=== PATIENT | male | born 1965 | race Caucasian/White ===

== ENCOUNTER 2021-07-22 11:28 | Day surgery (SDC) | payer OTHER, SELFPAY ==
[2021-07-17 08:57] VITALS: BMI 28.7
--- NOTE | 2021-07-18 14:29 | HO.ANESPROP2 ---
Documented by User: Denisha Cameron NP 07/18/21 14:29 HPI - Anesthesia Eval Consult details Narrative: 56yo M for Colonoscopy [facility] Past Medical History Medical History (Updated 07/17/21 @ 08:57 by Lizzette Sprague RN) Asthma GERD (gastroesophageal reflux disease) Seasonal allergies Surgical History Surgical History (Updated 07/17/21 @ 08:57 by Lizzette Sprague, RN) History of back surgery History of esophagogastroduodenoscopy (EGD) Hx of colonoscopy Hx of knee surgery Social History Social History (Updated 07/17/21 @ 08:58 by Lizzette Sprague, AGUSTÍN) Patient Tobacco Use Status: Current everyday Tobacco user Tobacco use type: Cigarette Cigarettes Per Day: 10 Use of substances other than those prescribed or required for medical reasons: No Advance Directives: No Advance Directives Information Provided: Yes Recently lost weight without trying: No Meds Allergies Allergy/AdvReac Type Severity Reaction Status Date / Time ibuprofen Allergy Unknown Verified 07/17/21 08:54 Home Medications Medication Instructions Recorded Confirmed Last Taken Type Flovent Diskus 07/17/21 Unknown History Probiotic 07/17/21 Unknown History Vitamin D3 07/17/21 Unknown History fluticasone propionate 07/17/21 Unknown History omeprazole 20 mg capsule,delayed 20 mg PO DAILY 07/17/21 07/17/21 Unknown History release propranolol 10 mg tablet 10 mg PO BID 07/17/21 07/17/21 Unknown History Exam Exam Date and Time: July 18, 2021 1429 Height,Weight and Vital Signs: Height 5 ft 10.5 in Weight 92.079 kg Assessment and Plan Assessment Anesthesia Assessment: Chart Reviewed Documented by User: Adam Spivey MD 07/22/21 13:48 [facility] Past Medical History Medical History (Updated 07/17/21 @ 08:57 by Lizzette Sprague RN) Asthma GERD (gastroesophageal reflux disease) Seasonal allergies Family History Family history of problems with anesthesia: No Surgical History Surgical History (Updated 07/17/21 @ 08:57 by Lizzette Sprague RN) History of back surgery History of esophagogastroduodenoscopy (EGD) Hx of colonoscopy Hx of knee surgery History of Problems with Anesthesia: No Social History Social History (Updated 07/17/21 @ 08:58 by Lizzette Sprague RN) Patient Tobacco Use Status: Current everyday Tobacco user Tobacco use type: Cigarette Cigarettes Per Day: 10 Use of substances other than those prescribed or required for medical reasons: No Advance Directives: No Advance Directives Information Provided: Yes Recently lost weight without trying: No Meds Allergies Allergy/AdvReac Type Severity Reaction Status Date / Time ibuprofen Allergy Unknown Verified 07/17/21 08:54 Home Medications Medication Instructions Recorded Confirmed Last Taken Type Flovent Diskus 07/17/21 Unknown History Probiotic 07/17/21 Unknown History Vitamin D3 07/17/21 Unknown History fluticasone propionate 07/17/21 Unknown History omeprazole 20 mg capsule,delayed 20 mg PO DAILY 07/17/21 07/17/21 Unknown History release propranolol 10 mg tablet 10 mg PO BID 07/17/21 07/17/21 Unknown History Exam Airway Mallampati Class: II TM Dist: >3cm Neck ROM: Full Loose/Missing/Broken Teeth: No Heart: [id number] Lungs: cta b/l Assessment and Plan Assessment Anesthesia Assessment: Anesthesia Plan Discussed Final Anesthetic Review Family History of Problems with Anesthesia: No History of Problems with Anesthesia: No NPO: Yes ASA Class: II Final Preanesthetic Review: No Changes in Pt Med Stat, Meds/Allgs Chart Reviewed, Consent Obtained/Reviewed and Anes Risks/Benef Reviewed Patient Risk: Intermediate Procedure Risk: Low Assessment/Block/Sedation in SS: Assess/Block/Sedation-SS Anesthetic Plan Anesthetic Plan: MAC: and Agree w/ Assess. and Plan Disposition: Standard PACU
[2021-07-22 12:32] VITALS: BP 110/63; PULSE 54; RESP 15; TEMP 36.1; O2SAT 96; BMI 27.8
[2021-07-22] MEDS: Lactated Ringers 1,000 ML 100 ML IVCONT (12:47)
[2021-07-22 15:05] VITALS: BP 105/50; PULSE 62; RESP 18; TEMP 36.6; O2SAT 97
--- NOTE | 2021-07-22 15:10 | P.BOP_ITS ---
Brief Operative Note Date of Service: 07/22/21 Pre-op diagnosis: Screening Post-op diagnosis: other (Colon polyps) Procedure: Colonoscopy to the cecum with cold snare polypectomy at 30cm and hot snare polypectomy in cecum Surgeon: Garrison Banerjee Anesthesia: MAC Was an Study Abroad Advisor used for this Procedure?: No Estimated blood loss (mL): 2.0 Pathology: other (A. Polyp at 30cm B. Cecal polyp) Condition: stable Disposition: PACU
[2021-07-22 15:20] VITALS: BP 122/58; PULSE 69; RESP 18; TEMP 36.2; O2SAT 98
--- NOTE | 2021-07-22 16:31 | OP_ITS ---
SURGEON: Garrison Banerjee MD INDICATIONS: The patient presents for evaluation of colorectal cancer screening and personal history of a tubular adenoma of the colon. Full consent was obtained from him for this, including risks of bleeding and perforation. PREOPERATIVE DIAGNOSIS: POSTOPERATIVE DIAGNOSIS: PROCEDURE PERFORMED: Colonoscopy to the cecum with cold snare polypectomy at 30 cm and hot snare polypectomy of cecal polyp. ESTIMATED BLOOD LOSS: COMPLICATIONS: ANESTHESIA: Monitored anesthesia care. ASSISTANTS: SPECIMENS: PREOPERATIVE DIAGNOSES: Colorectal cancer screening and personal history of tubular adenoma of the colon. POSTOPERATIVE DIAGNOSES: Colorectal cancer screening and personal history of tubular adenoma of the colon, colon polyps, diverticulosis, and internal hemorrhoids. DESCRIPTION OF PROCEDURE: The patient was placed in the left lateral decubitus position. The digital rectal exam revealed no abnormalities. The Olympus video pediatric colonoscope was entered into the rectum and advanced easily to the cecum. Once in the cecum I did identify the cecal pouch with appendiceal orifice and a normal-appearing ileocecal valve. There was transillumination of light deep in the right lower quadrant. The great majority of the cecum appeared normal. However, just on the inner edge of the cecum along the fold beneath the ileocecal valve was a flat but raised approximately 12 mm grossly adenomatous polyp. This was removed in piecemeal fashion with a hot snare polypectomy. Post polypectomy, there did not appear to be any residual polyp nor bleeding. There was initially some oozing, but this did stop spontaneously. I was going to place a clip on the site, but it was at a very difficult location and I could not get a good angle in which to place the clip. However there was no bleeding, even after irrigation and greater than 10 minutes of observation. The scope was then slowly withdrawn assessing all mucosal surfaces carefully. Preparation was excellent. At 30 cm was an approximately 5 mm polyp, which was removed by cold snare polypectomy and recovered by suction. The polypectomy site appeared clean, without any sign of residual polyp nor any significant bleeding. I did not visualize any other polyps, colitis, nor angiodysplasia. There was a mild amount of sigmoid diverticulosis. In the rectum, the scope was retroflexed visualizing some internal hemorrhoids, but no other pathology. The rectal mucosa appeared normal. The scope was straightened and withdrawn from the patient. He tolerated the procedure well and was returned to the recovery area in stable condition. IMPRESSION: 1. Colon polyps, status post cold snare polypectomy at 30 cm and hot snare polypectomy in the cecum. 2. Diverticulosis. 3. Internal hemorrhoids. PLAN: The results of the pathology will be checked. Given the flat polyp in the area of the cecum, I would recommend a repeat colonoscopy in 1-2 years. He was advised not to use any aspirin and NSAIDs for least 1 week. MD HOLLAND Alonso/JASE / [id number] MTDD
== END 2021-07-22 15:51 | disposition home or self-care (01) ==
PROVIDERS: PCP Internal Medicine; Visit Provider Internal Medicine
PROC: 0DJD8ZZ Inspection of Lower Intestinal Tract, Via Natural or Artificial Opening Endoscopic (ICD-10-PCS; CPT 45378; principal; 2021-07-22 12:40)
DX: Z12.11 Encounter for screening for malignant neoplasm of colon (principal); D12.0 Benign neoplasm of cecum; D12.6 Benign neoplasm of colon, unspecified; K57.30 Diverticulosis of large intestine without perforation or abscess without bleeding; K64.8 Other hemorrhoids; J45.909 Unspecified asthma, uncomplicated; F17.210 Nicotine dependence, cigarettes, uncomplicated; Z86.010 Personal history of colon polyps
CPT/HCPCS: 45385; 88305

== ENCOUNTER 2023-10-05 07:57 | Outpatient (REF) | payer OTHER, SELFPAY ==
[2023-10-05 12:05] LABS: MANUAL DIFF FLAG NO
[2023-10-05 12:06] LABS: Basophils Percent Auto 0.6 % (0-2); Eosinophils Absolute Auto 0.2 X10*3/uL (0.0-0.4); Eosinophils Percent Auto 3.3 % (0-4); Hematocrit 47.9 % (42.0-52.0); Imm Gran Abs Auto 0.03 X10*3/uL (0.00-0.03); Imm Gran Pct Auto 0.5 % (0.0-0.4); Lymphocytes Absolute Auto 2.3 X10*3/uL (1.2-4.9); Lymphocytes Percent Auto 35.5 % (20-40); Mean Corpuscular HGB Conc 33.4 g/dl (31.0-36.0); Mean Corpuscular Hemoglobin 32.1 pg (27.0-33.0); Mean Corpuscular Volume 96.2 fL (80.0-98.0); Mean Platelet Volume 9.6 fL (9.4-12.4); Monocytes Absolute Auto 0.5 X10*3/uL (0.1-1.2); Neutrophils Absolute Auto 3.5 x10*3/uL (2.0-8.3); Neutrophils Percent Auto 53.1 % (45-73); Platelet Count 276 X10*3/uL (160-400); Red Blood Count 4.98 X10*6/uL (4.60-5.80); Red Cell Distribution Width 13.9 % (11.0-16.0); White Blood Count 6.6 X10*3/uL (4.8-10.8)
[2023-10-05 12:22] LABS: Appearance Urine Clear; Color Urine Yellow; Glucose Urine UA Negative (Negative); Leukocyte Esterase Urine Negative (Negative); Nitrite Urine Negative (Negative); Specific Gravity - Urine 1.015 (1.005-1.025); Urine Blood Negative (Negative); Urine Ketones Negative (Negative); Urine Protein Negative (Neg-Trace)
[2023-10-05 12:27] LABS: Bacteria Urine None Seen (None Seen); Hyaline Casts Urine 0-2 /LPF (0-2); RBC Urine 0-2 /HPF (0-2); Squamous Epithelial Cell Urine 0-2 /HPF (0-2); WBC Urine 0-5 /HPF (0-5)
[2023-10-05 13:12] LABS: Alanine Aminotransferase 15 U/L (0-40); Albumin Level 4.1 g/dL (3.5-5.0); Alkaline Phosphatase 45 U/L (39-117); Anion Gap 11 (12-20); Aspartate Amino Transferase 15 U/L (5-37); Bilirubin Total 0.5 mg/dL (0.0-1.0); Blood Urea Nitrogen 11 mg/dL (9-16); Calcium 9.1 mg/dL (8.4-10.2); Carbon Dioxide 24 mmol/L (22-29); Chloride 109 mmol/L (96-108); Cholesterol 162 mg/dL (<200); Estimated Glomerular Filt Rate > 60; Glucose Fasting 93 mg/dL (60-99); HDL Cholesterol 52 mg/dL (>40); LDL Cholesterol Calculated 95 mg/dL (<100); Potassium 4.1 mmol/L (3.3-5.1); Sodium 140 mmol/L (135-145); Total Protein 6.6 g/dL (6.5-8.0); Triglycerides 77 mg/dL (<150)
[2023-10-05 13:14] LABS: PSA,Total (Free>4and<10) 0.84 ng/mL (0.00-4.00)
[2023-10-05 13:35] LABS: Thyroid Stimulating Hormone 0.97 uIU/mL (0.32-4.0); Vitamin D 25-OH Total 25.4 ng/mL (>30)
== END 2023-10-05 07:58 | disposition home or self-care (01) ==
LOC: HO.HMGCLDS 07:57
PROVIDERS: PCP Internal Medicine; Visit Provider Internal Medicine
DX: J45.30 Mild persistent asthma, uncomplicated (principal); R25.1 Tremor, unspecified; Z12.5 Encounter for screening for malignant neoplasm of prostate
CPT/HCPCS: 36415; 80053; 80061; 81001; 82306; 84153; 84443; 85025

== ENCOUNTER 2023-10-16 08:50 | Outpatient (REF) | payer BC, SELFPAY ==
--- NOTE | ~2023-10-16 | XR_ITS ---
EXAMINATION: XR CHEST CLINICAL INFORMATION: Asthma COMPARISON: None available. TECHNIQUE: 2 views of the chest were obtained. FINDINGS: No significant abnormality is noted involving the heart, lungs, mediastinum, bony thorax or soft tissues. XR/XR chest 2V IMPRESSION: Unremarkable examination.
== END 2023-10-16 08:51 | disposition home or self-care (01) ==
LOC: HO.HMGCX 08:50
PROVIDERS: PCP Internal Medicine; Visit Provider Internal Medicine
DX: J45.30 Mild persistent asthma, uncomplicated (principal)
CPT/HCPCS: 71046

== ENCOUNTER 2023-10-21 08:48 | Outpatient (AMB) | payer BC, SELFPAY ==
[2023-10-21 08:58] VITALS: BP 106/72; PULSE 54; O2SAT 96; BMI 28.7
--- NOTE | 2023-10-21 08:58 | A.OFFVIS_ITS ---
Vital Signs 10/21/23 08:58 Height 5 ft 10.5 in Weight 203 lb 2 oz BMI 28.7 BP 106/72 Blood Pressure Location Lt brachial Position Sitting Pulse 54 Pulse Source Pulse Oximeter Pulse Oximetry (%) 96 Oxygen Delivery Method Room Air Intake Visit Reasons: Asthma Allergies ibuprofen Allergy (Verified 10/21/23 09:02) Unknown HPI HPI Asthma: Details: Grant is a pleasant 58 year old, recently quit smoking with 20 pack year history, with underlying asthma, environmental allergies, VIKKI and GERD. He was referred by PCP for pulmonary evaluation for worsening asthma control. He has been using an ICS inhaler with moderate effect, recently switched to QVAR from Flovent. Patient reports since having COVID in May 2019 he has had increased labored breathing with activity, productive cough with white sputum and intermittent wheezing. Denies chest tightness. He was diagnosed with asthma as an adult, never requiring intubation. He reports multiple seasonal allergies, symptoms controlled with flonase and claritin. He denies any pets at home. He denies any occupational exposures. He denies any pertinent family history. [facility] Medical History (Updated 10/21/23 @ 10:01 by Cierra Servin NP) Seasonal allergies GERD (gastroesophageal reflux disease) Asthma Surgical History (Updated 07/17/21 @ 08:57 by Lizzette Sprague RN) Hx of knee surgery History of back surgery Hx of colonoscopy History of esophagogastroduodenoscopy (EGD) Social History (Updated 10/21/23 @ 09:59 by Cierra Servin NP) Patient Tobacco Use Status: Former Tobacco user Tobacco use type: Cigarette Cigarettes Per Day: 10 Years Smoked: started approx 15 yrs old, 1/2 ppd, quit this past thursday Review of Systems Const Denies chills, Denies excessive sweating, Denies fever(s), Denies headache(s) and Denies night sweats Eyes Denies dry eyes, Denies irritation and Denies itchy eyes ENT Reports Normal hearing present, Denies headache(s), Denies nasal congestion, Denies nasal discharge, Denies post nasal drip and Denies sore throat Card Denies chest pain, Denies chest pain at rest, Denies chest pain with activity, Denies claudication, Denies leg edema, Denies dyspnea, Denies orthopnea and Denies paroxysmal nocturnal dyspnea Resp Denies chest congestion, Denies excessive phlegm production, Denies pain on inspiration, Denies pain with cough, Denies dyspnea and Denies stridor Musc Denies myalgias Neuro Reports Normal hearing present and Denies headache(s) Endo Denies excessive sweating Bernardo/Lymph Denies lymphadenopathy Aller/Immun Denies itchy eyes and Denies seasonal rhinorrhea Physical Exam Vital Signs: Last Vital Signs Pulse 54 10/21/23 08:58 BP 106/72 10/21/23 08:58 Pulse Ox 96 10/21/23 08:58 Oxygen Delivery Method Room Air 10/21/23 08:58 BMI result Body Mass Index 28.7 Const General: cooperative, healthy appearing, comfortable, no acute distress, well developed and alert Orientation/consciousness: patient oriented x3 Limitations: no limitations HEENT Head: Yes normal to inspection, Yes normocephalic and Yes atraumatic Ears: hearing grossly normal bilaterally and external ears normal Eyes General: appearance normal, both eyes and all related structures Eyelids: Yes eyelids normal Sclerae: sclerae normal EOM: EOMs intact bilaterally Neck Neck: Yes normal visual inspection and Yes no lymphadenopathy Lymphatic: no lymphadenopathy noted Chest Chest palpation & inspection: normal inspection of the chest Resp Effort & Inspection: normal respiratory effort, able to speak in complete sentences, no audible wheezes, no cough, no stridor, not tachypneic, no tripod positioning and no use of accessory muscles Auscultation: clear to auscultation bilaterally Cardio Jugular venous distension: no JVD Rate: regular rate Rhythm: regular rhythm Skin Other: warm, dry General skin exam: no rashes or lesions noted Neuro General: patient oriented x3 Cranial nerves: Yes Normal hearing present Cognition (Neuro): normal cognition Gait exam (Neuro): Normal gait present Extrem General: Yes normal to inspection, Yes capillary refill normal, Yes no clubbing, cyanosis or edema and Yes no pedal edema Psych Appearance: grossly normal and well kempt Speech and movement: Normal speech and movement present and Clear speech present Affect: normal affect Attitude: cooperative Thought process: Normal thought process present Thought content: Normal thought content present Insight: Good insight present (Psych) Judgement: Good judgement present (Psych) Assessment & Plan Assessment & Plan (1) Asthma: Code(s): J45.909 - Unspecified asthma, uncomplicated Category: Medical (2) Nicotine dependence, cigarettes, uncomplicated: Code(s): F17.210 - Nicotine dependence, cigarettes, uncomplicated Category: Medical (3) Environmental allergies: Code(s): Z91.09 - Other allergy status, other than to drugs and biological substances Category: Medical Plan Grant presents for pulmonary evaluation for worsening asthma control. He was previously using Flovent with good effect and switched to Qvar. He continues to report labored breathing and intermittent productive cough with white sputum as well as wheezing. Discussed switching to an ICS/LABA however patient deferred at this time. Advised to use albuterol PRN and if consistently uses with good effect then will reconsider switching. Patient recently quit smoking this past week and motivated to continue this. Discussed LDCT with 20+ smoking history, however he declined. Will send for PFT to assess severity of asthma and possible COPD. All questions were answered and patient is in agreement of plan. Will follow up in 6-8 weeks or sooner if needed. Orders: Orders PFT pulmonary function test Today J45.909 - Unspecified asthma, uncomplicated Coding Level of Care Code New Pt Level 4 (49602) Diagnoses Asthma J45.909 Nicotine dependence, cigarettes, uncomplicated F17.210 Environmental allergies Z91.09
== END 2023-10-21 09:28 | disposition home or self-care (01) ==
PROVIDERS: PCP Internal Medicine; Referring Provider Internal Medicine; Visit Provider Nurse Practitioner Family
DX: J45.909 Unspecified asthma, uncomplicated (principal); F17.210 Nicotine dependence, cigarettes, uncomplicated; Z91.09 Other allergy status, other than to drugs and biological substances
CPT/HCPCS: 99204

== ENCOUNTER → 2023-10-21 08:48 | Outpatient (BNVA) | payer OTHER, SELFPAY | PROVIDERS: PCP Internal Medicine; Referring Provider Internal Medicine; Visit Provider Nurse Practitioner Family ==

== ENCOUNTER 2023-12-01 08:43 | Outpatient (AMB) | payer BC, SELFPAY ==
--- NOTE | 2023-12-01 08:45 | A.OFFVIS_ITS ---
Vital Signs 12/01/23 08:50 Height 5 ft 10.5 in Weight 207 lb 6 oz BMI 29.3 BP 120/76 Blood Pressure Location Rt brachial Position Sitting Pulse 52 Pulse Source Pulse Oximeter Pulse Oximetry (%) 97 Oxygen Delivery Method Room Air Intake Visit Reasons: Asthma Allergies ibuprofen Allergy (Verified 12/01/23 08:54) Unknown HPI HPI Asthma: Details: Grant is a pleasant 58 year old, recently quit smoking with 20 pack year history, with underlying asthma, environmental allergies, VIKKI and GERD. He was initially referred by PCP for pulmonary evaluation for worsening asthma control since having COVID in May 2019. Since the last visit, he has quit smoking x 1 month and reports respiratory symptoms are well controlled on QVAR. He denies any respiratory symptoms at this time. We also discussed LDCT at the last visit and today however patient would like to defer at this time. An order for PFT was entered but this has yet to be scheduled. He denies any visits to urgent care or hospitalizations since the last visit. [facility] Medical History (Updated 10/21/23 @ 10:01 by Cierra Servin NP) Seasonal allergies GERD (gastroesophageal reflux disease) Asthma Surgical History (Updated 07/17/21 @ 08:57 by Lizzette Sprague RN) Hx of knee surgery History of back surgery Hx of colonoscopy History of esophagogastroduodenoscopy (EGD) Social History Patient Tobacco Use Status: Former Tobacco user Tobacco use type: Cigarette Cigarettes Per Day: 10 Years Smoked: started approx 15 yrs old, 1/2 ppd, quit this past thursday Review of Systems Const Denies chills, Denies excessive sweating, Denies fever(s), Denies headache(s) and Denies night sweats Eyes Denies dry eyes, Denies irritation and Denies itchy eyes ENT Reports Normal hearing present and Denies headache(s) Card Denies chest pain, Denies chest pain at rest, Denies chest pain with activity, Denies claudication, Denies leg edema, Denies dyspnea, Denies dyspnea on exertion, Denies orthopnea and Denies paroxysmal nocturnal dyspnea Resp Denies chest congestion, Denies cough, Denies excessive phlegm production, Denies pain on inspiration, Denies pain with cough, Denies dyspnea, Denies dyspnea on exertion, Denies stridor and Denies wheezing Musc Denies myalgias Neuro Reports Normal hearing present and Denies headache(s) Endo Denies excessive sweating Bernardo/Lymph Denies lymphadenopathy Aller/Immun Denies itchy eyes, Denies seasonal rhinorrhea and Denies wheezing Physical Exam Vital Signs: Last Vital Signs Pulse 52 12/01/23 08:50 BP 120/76 12/01/23 08:50 Pulse Ox 97 12/01/23 08:50 Oxygen Delivery Method Room Air 12/01/23 08:50 BMI result Body Mass Index 29.3 Const General: cooperative, healthy appearing, comfortable, no acute distress, well developed and alert Nutritional Appearance: average body habitus Orientation/consciousness: patient oriented x3 Limitations: no limitations HEENT Head: Yes normal to inspection, Yes normocephalic and Yes atraumatic Ears: hearing grossly normal bilaterally and external ears normal Eyes General: appearance normal, both eyes and all related structures Eyelids: Yes eyelids normal Sclerae: sclerae normal EOM: EOMs intact bilaterally Neck Neck: Yes normal visual inspection and Yes no lymphadenopathy Lymphatic: no lymphadenopathy noted Chest Chest palpation & inspection: normal inspection of the chest Resp Effort & Inspection: normal respiratory effort, able to speak in complete sentences, no audible wheezes, no cough, no stridor, not tachypneic, no tripod positioning and no use of accessory muscles Auscultation: clear to auscultation bilaterally Cardio Jugular venous distension: no JVD Rate: regular rate Rhythm: regular rhythm Skin Other: warm, dry General skin exam: no rashes or lesions noted Neuro General: patient oriented x3 Cranial nerves: Yes Normal hearing present Cognition (Neuro): normal cognition Gait exam (Neuro): Normal gait present Extrem General: Yes normal to inspection, Yes capillary refill normal, Yes no clubbing, cyanosis or edema and Yes no pedal edema Psych Appearance: grossly normal and well kempt Speech and movement: Normal speech and movement present and Clear speech present Affect: normal affect Attitude: cooperative Thought process: Normal thought process present Thought content: Normal thought content present Insight: Good insight present (Psych) Judgement: Good judgement present (Psych) Assessment & Plan Assessment & Plan (1) Asthma: Code(s): J45.909 - Unspecified asthma, uncomplicated Category: Medical (2) Personal history of tobacco use: Code(s): Z87.891 - Personal history of nicotine dependence Category: Social Hx Plan At this time Grant denies and respiratory symptoms and has been well controlled on Qvar, advised to continue. Commended patient on continuing to be smoke free and he is motivated to maintain this. Discussed LDCT with 20+ smoking history, however he declined. Awaiting PFT to be scheduled [place] [facility], he is aware this may be scheduled in 2 + months. If he requests this to be performed sooner will send out. All questions were answered and patient is in agreement of plan. Will follow up to review results or sooner if needed. Coding Level of Care Code Est Pt Level 3 (04700) Diagnoses Asthma J45.909 Personal history of tobacco use Z87.891
[2023-12-01 08:50] VITALS: BP 120/76; PULSE 52; O2SAT 97; BMI 29.3
== END 2023-12-01 10:55 | disposition home or self-care (01) ==
PROVIDERS: PCP Internal Medicine; Visit Provider Nurse Practitioner Family
DX: J45.909 Unspecified asthma, uncomplicated (principal); Z87.891 Personal history of nicotine dependence
CPT/HCPCS: 99213

== ENCOUNTER → 2023-12-01 08:43 | Outpatient (BNVA) | payer BC, SELFPAY | PROVIDERS: PCP Internal Medicine; Visit Provider Nurse Practitioner Family ==

== ENCOUNTER 2024-01-06 10:15 | Day surgery (SDC) | payer BC, SELFPAY ==
[2024-01-04 14:39] VITALS: BMI 28.4
--- NOTE | 2024-01-05 08:34 | HO.ANESPROP2 ---
Documented by User: Denisha Cameron NP 01/05/24 08:34 HPI - Anesthesia Eval Consult details Narrative: 58yo M for Colonoscopy PMFSH Active Problems Active Problems: All Active Problems Personal history of tobacco use (Acute) Environmental allergies (Acute) Asthma (Acute) Nicotine dependence, cigarettes, uncomplicated (Acute) Past Medical History Medical History Seasonal allergies GERD (gastroesophageal reflux disease) Asthma Family History Family history of problems with anesthesia: No Surgical History Surgical History Hx of knee surgery History of back surgery Hx of colonoscopy History of esophagogastroduodenoscopy (EGD) History of Problems with Anesthesia: No Social History Social History Are you a primary career development coordinator to a significant other at home: No Do you presently have visiting nurse or other home services: No Patient Tobacco Use Status: Former Tobacco user Tobacco use type: Cigarette Cigarettes Per Day: 10 Years Smoked: started approx 15 yrs old, 1/2 ppd, quit this past thursday Use of substances other than those prescribed or required for medical reasons: No Have you been hit, kicked, punched, or otherwise hurt by someone within the past year? If so, by whom?: No Are you DNR?: No Advance Directives: No Advance Directives Information Provided: Yes Recently lost weight without trying: No Nutrition Risks: No Nutritional Risk Meds Allergies Allergy/AdvReac Type Severity Reaction Status Date / Time ibuprofen Allergy Unknown Verified 01/06/24 10:38 Home Medications ?Medication ?Instructions ?Recorded ?Confirmed ?Last Taken ?Type Probiotic 1 mg PO DAILY 07/17/21 Unknown History Vitamin D3 07/17/21 Unknown History omeprazole 20 mg capsule,delayed 20 mg PO DAILY 07/17/21 01/06/24 Unknown History release propranolol 10 mg tablet 10 mg PO BID 07/17/21 01/06/24 Unknown History albuterol sulfate 90 mcg/actuation 2 inh inhalation Q4H PRN Shortness 10/21/23 01/06/24 01/06/24 History aerosol inhaler Of Breath Or Wheezing beclomethasone dipropionate 40 1 inh inhalation BID 10/21/23 01/06/24 01/06/24 History mcg/actuation HFA breath activated aerosol (Qvar RediHaler) fluticasone propionate 50 1 spray intranasal DAILY 10/21/23 01/06/24 01/06/24 History mcg/actuation nasal spray,suspension Exam Height,Weight and Vital Signs: Height 5 ft 10.5 in Weight 91.172 kg Assessment and Plan Assessment Anesthesia Assessment: Chart Reviewed Final Anesthetic Review Family History of Problems with Anesthesia: No History of Problems with Anesthesia: No Documented by User: Benjamin Wilson MD 01/06/24 12:32 PMFSH Past Medical History Medical History Seasonal allergies GERD (gastroesophageal reflux disease) Asthma Surgical History Surgical History Hx of knee surgery History of back surgery Hx of colonoscopy History of esophagogastroduodenoscopy (EGD) Social History Social History Are you a primary career development coordinator to a significant other at home: No Do you presently have visiting nurse or other home services: No Patient Tobacco Use Status: Former Tobacco user Tobacco use type: Cigarette Cigarettes Per Day: 10 Years Smoked: started approx 15 yrs old, 1/2 ppd, quit this past thursday Use of substances other than those prescribed or required for medical reasons: No Have you been hit, kicked, punched, or otherwise hurt by someone within the past year? If so, by whom?: No Are you DNR?: No Advance Directives: No Advance Directives Information Provided: Yes Recently lost weight without trying: No Nutrition Risks: No Nutritional Risk Meds Allergies Allergy/AdvReac Type Severity Reaction Status Date / Time ibuprofen Allergy Unknown Verified 01/06/24 10:38 Home Medications ?Medication ?Instructions ?Recorded ?Confirmed ?Last Taken ?Type Probiotic 1 mg PO DAILY 07/17/21 Unknown History Vitamin D3 07/17/21 Unknown History omeprazole 20 mg capsule,delayed 20 mg PO DAILY 07/17/21 01/06/24 Unknown History release propranolol 10 mg tablet 10 mg PO BID 07/17/21 01/06/24 Unknown History albuterol sulfate 90 mcg/actuation 2 inh inhalation Q4H PRN Shortness 10/21/23 01/06/24 01/06/24 History aerosol inhaler Of Breath Or Wheezing beclomethasone dipropionate 40 1 inh inhalation BID 10/21/23 01/06/24 01/06/24 History mcg/actuation HFA breath activated aerosol (Qvar RediHaler) fluticasone propionate 50 1 spray intranasal DAILY 10/21/23 01/06/24 01/06/24 History mcg/actuation nasal spray,suspension Exam Airway Mallampati Class: I TM Dist: <=3cm Neck ROM: Full Loose/Missing/Broken Teeth: No Heart: ok Lungs: ok Assessment and Plan Assessment Anesthesia Assessment: Anesthesia Plan Discussed Final Anesthetic Review NPO: Yes ASA Class: II Final Preanesthetic Review: No Changes in Pt Med Stat, Meds/Allgs Chart Reviewed, Consent Obtained/Reviewed and Anes Risks/Benef Reviewed Patient Risk: Low Procedure Risk: Low Anesthetic Plan Anesthetic Plan: MAC: and Agree w/ Assess. and Plan Disposition: Standard PACU
[2024-01-06 10:45] VITALS: BMI 30.4
[2024-01-06] MEDS: Lactated Ringers 1,000 ML 100 ML IVCONT (11:09)
[2024-01-06 11:10] VITALS: BP 117/68; PULSE 62; RESP 14; TEMP 36.2; O2SAT 98
--- NOTE | 2024-01-06 13:08 | P.BOP_ITS ---
Brief Operative Note Date of Service: 01/06/24 Pre-op diagnosis: Screening Post-op diagnosis: other (Polyp, areas of ulceration) Procedure: Colonoscopy to the cecum with hot snare polypectomy and biopsies Surgeon: Garrison Banerjee MD Anesthesia: MAC Was an Orthopaedic Physician Assistant used for this Procedure?: No Estimated blood loss (mL): 2.0 Pathology: other (A. Cecal polyp B. Area of ulceration on Ileocecal Valve C. Ascending fold ulceration) Condition: stable Disposition: PACU
[2024-01-06 13:09] VITALS: BP 95/55; PULSE 56; RESP 18; TEMP 36.4; O2SAT 99
[2024-01-06 13:24] VITALS: BP 110/59; PULSE 52; RESP 18; TEMP 36.1; O2SAT 99
--- NOTE | 2024-01-06 23:32 | OP_ITS ---
DATE OF SERVICE: 01/06/2024 SURGEON: Garrison Banerjee MD INDICATIONS: The patient presents for followup of personal history of tubular adenoma of the colon and colorectal cancer screening. Full consent has been obtained from him for this including risks of bleeding and perforation. PREOPERATIVE DIAGNOSIS: POSTOPERATIVE DIAGNOSIS: PROCEDURE PERFORMED: ESTIMATED BLOOD LOSS: COMPLICATIONS: ANESTHESIA: Medication used, monitored anesthesia care. ASSISTANTS: SPECIMENS: PREOPERATIVE DIAGNOSES: Colorectal cancer screening and personal history of tubular adenoma of the colon. POSTOPERATIVE DIAGNOSES: Colorectal cancer screening and personal history of tubular adenoma of the colon, small colon polyp, ulceration on the ileocecal valve and a fold in the ascending colon, diverticulosis, internal hemorrhoids. PROCEDURES PERFORMED: Colonoscopy to the cecum with hot snare polypectomy and biopsies. DESCRIPTION OF PROCEDURE: The patient was placed in the left lateral decubitus position. The digital rectal exam revealed no abnormalities. The needmade video pediatric colonoscope was entered into the rectum and advanced easily to the cecum. Once in the cecum, I did identify normal-appearing cecal pouch other than an approximately 6 mm polyp, which was removed by hot snare polypectomy. The polyp was recovered by suction. The polypectomy site appeared clean without any sign of residual polyp, nor bleeding. The entire cecum was well visualized and carefully inspected and I did not visualize any sign of other polyps. The terminal ileum was cannulated and appeared normal. The scope withdrawn back in the colon. On the outer portion of the ileocecal valve, there was some evidence of ulceration and edema. This did not appear to be a mass. Multiple biopsies were obtained from the edges of the ulceration. In the very proximal ascending colon on a fold, opposite the ileocecal valve, there was another area of some ulceration, but again without any sign of obvious mass. Biopsies were taken from the margins of that ulceration as well. The remainder of the colon appeared normal without any sign of polyps, colitis, nor angiodysplasia. There was a mild amount of sigmoid diverticulosis. In the rectum, scope was retroflexed visualizing internal hemorrhoids, but no other pathology. The rectal mucosa appeared normal. The scope was straightened and withdrawn from the patient. He tolerated the procedure well and was returned to the recovery area in stable condition. IMPRESSION: 1. Colon polyp. 2. Areas of ulceration on the ileocecal valve and ascending colon, status post biopsy. 3. Diverticulosis. 4. Internal hemorrhoids. PLAN: Results of the pathology will be checked. He was advised not to use any aspirin or NSAIDs for at least 1 week. Given his previous history and today's findings, I would recommend a repeat colonoscopy in 2 years. This has been discussed with the patient and a voicemail was left on his 's cellphone. MD HOLLAND Alonso/JASE / [id number]
== END 2024-01-06 13:48 | disposition home or self-care (01) ==
PROVIDERS: PCP Internal Medicine; Visit Provider Internal Medicine
PROC: 0DJD8ZZ Inspection of Lower Intestinal Tract, Via Natural or Artificial Opening Endoscopic (ICD-10-PCS; CPT 45378; principal; 2024-01-06 11:30)
DX: Z12.11 Encounter for screening for malignant neoplasm of colon (principal); D12.0 Benign neoplasm of cecum; K51.80 Other ulcerative colitis without complications; Q43.8 Other specified congenital malformations of intestine; K57.30 Diverticulosis of large intestine without perforation or abscess without bleeding; K64.8 Other hemorrhoids; Z86.010 Personal history of colon polyps; J45.909 Unspecified asthma, uncomplicated; F17.210 Nicotine dependence, cigarettes, uncomplicated; K21.9 Gastro-esophageal reflux disease without esophagitis; Z80.0 Family history of malignant neoplasm of digestive organs; Z79.899 Other long term (current) drug therapy
CPT/HCPCS: 45385; 45380; 88305; J2704

== ENCOUNTER 2024-07-12 08:55 | Outpatient (AMB) | payer BC, SELFPAY ==
--- NOTE | 2024-07-12 09:04 | MHC.PC.OV ---
Vital Signs 07/12/24 09:12 Height 5 ft 10 in Weight 229 lb BMI 32.9 BP 128/80 Blood Pressure Location Rt brachial Pulse 59 Pulse Source Pulse Oximeter Temp 97.3 F Pulse Oximetry (%) 95 Intake Visit Reasons: 6 month follow up Intake Note: no issues Allergies ibuprofen Allergy (Verified 07/12/24 15:13) Unknown Medication List - Last Reconciled 07/12/24 by Re King PA-C albuterol sulfate 90 mcg/actuation 2 inhalations inhalation Q4H PRN ascorbic acid (vitamin C) 1 g PO DAILY beclomethasone dipropionate 40 mcg/actuation (Qvar RediHaler) 1 inh inhalation BID fluticasone propionate 50 mcg/actuation 1 spray intranasal DAILY [Probiotic 1 mg PO DAILY] propranolol 10 mg PO BID 90 days [Vitamin D3 ] PFSH Medical History (Updated 07/12/24 @ 15:16 by Re King PA-C) Class 1 obesity with body mass index (BMI) of 32.0 to 32.9 in adult Nicotine dependence Tremor Helicobacter pylori gastritis Onychomycosis Lumbar herniated disc Degenerative disc disease Allergies Spinal stenosis Seasonal allergies GERD (gastroesophageal reflux disease) Asthma Surgical History Hx of knee surgery History of back surgery Hx of colonoscopy (~01/06/24) History of esophagogastroduodenoscopy (EGD) Social History Are you a primary director of home care hospice to a significant other at home: No Do you presently have visiting nurse or other home services: No Patient Tobacco Use Status: Former Tobacco user Tobacco use type: Cigarette Cigarettes Per Day: 10 Years Smoked: started approx 15 yrs old, 1/2 ppd, quit this past thursday Questionnaire PHQ-9 Over the last 2 weeks, how often have you been bothered by any of the following problems? 1. Little interest or pleasure in doing things: not at all 2. Feeling down, depressed, or hopeless: not at all 3. Trouble falling or staying asleep, or sleeping too much: not at all 4. Feeling tired or having little energy: not at all 5. Poor appetite or overeating: not at all 6. Feeling bad about yourself - or that you are a failure or have let yourself or your family down: not at all 7. Trouble concentrating on things, such as reading the newspaper or watching television: not at all 8. Moving or speaking so slowly that other people could have noticed. Or the opposite - being so fidgety or restless that you have been moving around a lot more than usual: not at all 9. Thoughts that you would be better off or of hurting yourself in some way: not at all Total score: 0 Depression Screening Interpretation: Negative Depression Screening Done: Yes 03230 - PHQ-9 Billing: Yes Source: Developed by Drs. Garrison Durand, Lupis Bailey, Charles Link and colleagues, with an educational alise from [employer] Thrive Questionnaire Date Thrive assessed: 07/12/24 I am a: Patient What is your living situation today?: I have a steady place to live Within the past 12 months, did the food you bought not last and you didn't have the money to get more?: Never true Within the past 12 months, did you worry whether your food would run out before you got money to buy more?: Never true Do you have trouble paying for medicines?: No Do you have trouble getting transportation to medical appointments?: No Do you have trouble paying your heating and electricity bill?: No Do you have trouble taking care of your child, family member or friend?: No Do you have trouble with day-to-day activities such as bathing, preparing meals, shopping, managing finances, etc.?: No Are you currently unemployed and looking for a job?: No Are you interested in more education?: No Please select the resources that you would like help with: None THRIVE Score: 0 AUDIT C Alcohol Use Questionnaire (AUDIT-C) 1. How often do you have a drink containing alcohol?: Never 3. How often do you have six or more drinks on one occasion?: Never Total Score: 0 Score Reviewed/Action Taken: No LYSSA-7 AMB Questionnaire LYSSA-7 Date LYSSA - 7 assessed: 07/12/24 Feeling nervous, anxious, or on edge: 0 = Not at all Not being able to stop or control worryin = Not at all Worrying too much about different things: 0 = Not at all Trouble relaxin = Not at all Being so restless that it is hard to sit still: 0 = Not at all Becoming easily annoyed or irritable: 0 = Not at all Feeling afraid as if something awful might happen: 0 = Not at all Total LYSSA-7 score (0-4 normal; 5-9 mild; 10-14 moderate; 15-21 severe): 0 Source: Developed by Drs. Garrison Durand, Lupis Bailey, Charles Link and colleagues, with an educational alise from [employer] LYSSA-7 Assessment Billing LYSSA-7 Assessment Tool: LYSSA-7 Assessment 79089 Physical exam (Primary Care) Vital Signs: Last Vital Signs Temp 97.3 F 07/12/24 09:12 Pulse 59 07/12/24 09:12 BP 128/80 07/12/24 09:12 Pulse Ox 95 07/12/24 09:12 Care Plan Goal for BP management: <130/80 at Goal BMI result Body Mass Index 32.9 BMI Assessment/Plan discussion: High BMI High, discussed plan: lifestyle, weight reduction, dietary, physical activity and alcohol moderation Tobacco/Smoking Status: Tobacco use Status Patient Tobacco Use Status Former Tobacco user 07/12/24 09:10 Tobacco use type Cigarette 07/12/24 09:10 PHQ-9: PHQ-9 Score PHQ-9: Total score 0 07/12/24 17:11 Depression Screening Interpretation: Negative Thrive Assessment: Date of Thrive Assessment Date Thrive assessed 07/12/24 07/12/24 09:19 Coding Level of Care Code New Pt Level 4 (69170) Complex EM visit Add On G2211 Diagnoses Asthma J45.909 Nicotine dependence F17.200 Degenerative disc disease Lumbar herniated disc M51.26 Spinal stenosis M48.00 Onychomycosis B35.1 Tremor R25.1 Class 1 obesity with body mass index (BMI) of 32.0 to 32.9 in adult E66.811; Z68.32 Environmental allergies Z91.09 Additional Codes LYSSA-7 Assessment Billing - LYSSA-7 Assessment Tool: LYSSA-7 Assessment 10800 ([id number]) PHQ-9 - 06186 - PHQ-9 Billing: Yes ([id number]) Assessment & Plan Assessment & Plan (1) Asthma: Code(s): J45.909 - Unspecified asthma, uncomplicated Category: Medical Plan: Manage asthma through continued symptom monitoring. Pursue completion of pulmonary function testing to explore possible obstructive airway disease discrepancies. (2) Nicotine dependence: Comment: Quit October 19, 2023 Code(s): F17.200 - Nicotine dependence, unspecified, uncomplicated Category: Medical Plan: quit October 19, 2023 (3) Degenerative disc disease: Category: Medical Plan: Maintain regular chiropractic adjustments; monitor for potential pain exacerbation, particularly with activity. (4) Lumbar herniated disc: Code(s): M51.26 - Other intervertebral disc displacement, lumbar region Category: Medical Plan: Maintain regular chiropractic adjustments; monitor for potential pain exacerbation, particularly with activity. (5) Spinal stenosis: Code(s): M48.00 - Spinal stenosis, site unspecified Category: Medical Plan: Maintain regular chiropractic adjustments; monitor for potential pain exacerbation, particularly with activity. (6) Onychomycosis: Code(s): B35.1 - Tinea unguium Category: Medical Plan: Initiate topical antifungal medication; refer to podiatry for specialized evaluation and ongoingmanagement. (7) Tremor: Comment: Hands B/l Code(s): R25.1 - Tremor, unspecified Category: Medical Plan: Propranolol treatment persists as effective management. Further diagnostic intervention remains unnecessary unless symptom exacerbation occurs. (8) Class 1 obesity with body mass index (BMI) of 32.0 to 32.9 in adult: Code(s): E66.811 - Obesity, class 1; Z68.32 - Body mass index [BMI] 32.0-32.9, adult Category: Medical Plan: Patient to improve his diet and exercise regimen. Condition is chronic and stable continue to monitor. (9) Environmental allergies: Code(s): Z91.09 - Other allergy status, other than to drugs and biological substances Category: Medical Plan: Consider antihistamines if symptomatically necessary; monitor environmental exposure types relevant to history. Plan Plan Patient was informed and verbally consented to the use of an ambient scribe for clinic note documentation during this visit. 1. Chronic Low Back Pain Due To Lumbar Disc Disease Maintain regular chiropractic adjustments; monitor for potential pain exacerbation, particularly with activity. 2. Environmental Allergies Consider antihistamines if symptomatically necessary; monitor environmental exposure types relevant to history. 3. Onychomycosis Initiate topical antifungal medication; refer to podiatry for specialized evaluation and ongoingmanagement. 4. Encounter for screening for malignant neoplasm of colon Continue with biennial colonoscopies for polyp detection and management as per previous findings. 5. Tremor, unspecified Propranolol treatment persists as effective management. Further diagnostic intervention remains unnecessary unless symptom exacerbation occurs. 6. Helicobacter Pylori Infection Continue monitoring post-treatment status. No immediate concerns warrant ongoing therapy. 7. Asthma Manage asthma through continued symptom monitoring. Pursue completion of pulmonary function testing to explore possible obstructive airway disease discrepancies. Discussion Notes I took time to explain to the patient the nature and implications of his conditions and outlined the current management plans. We discussed the benefit of completing a pulmonary function test to clarify any concerns regarding asthma and airway disease. Exploring the pharmaceutical and podiatric management of onychomycosis was prioritized, understanding the pros and cons of topical versus systemic treatment. We reviewed the patient's decision to cease smoking and recognized the health benefits following this change. I underscored the significance of routine check-ups, particularly regarding colonoscopy due to prior findings of polyps. Patient agreed with the proposed plans and was reassured about the current stability of his conditions. Orders: Orders Hemoglobin A1c Today Z00.00 - Encounter for general adult medical examination without abnormal findings Lipid Panel Today Z00.00 - Encounter for general adult medical examination without abnormal findings TSH reflex Free T4 Today Z00.00 - Encounter for general adult medical examination without abnormal findings Vitamin B12 and Folate Today Z00.00 - Encounter for general adult medical examination without abnormal findings Liver Panel Today Z00.00 - Encounter for general adult medical examination without abnormal findings PFT pulmonary function test Today F17.200 - Nicotine dependence, unspecified, uncomplicated, J45.909 - Unspecified asthma, uncomplicated Complete Blood Count Auto Diff Today Z00.00 - Encounter for general adult medical examination without abnormal findings Comprehensive [place]. Panel Fast Today Z00.00 - Encounter for general adult medical examination without abnormal findings C Reactive Protein Today Z00.00 - Encounter for general adult medical examination without abnormal findings PSA,Total (Free>4and<10) Today Z00.00 - Encounter for general adult medical examination without abnormal findings Magnesium Today Z00.00 - Encounter for general adult medical examination without abnormal findings Erythrocyte Sedimentation Rate Today Z00.00 - Encounter for general adult medical examination without abnormal findings Vitamin D 25-OH Total Today Z00.00 - Encounter for general adult medical examination without abnormal findings Referrals Podiatry Referral B35.1 - Tinea unguium Medications: New efinaconazole 10% 1 appl topical BEDTIME 8 mL 12RF 48 weeks B35.1 - Tinea unguium Patient Instructions: Patient Instructions - Continue using propranolol for hand tremor management. - Initiate application of prescribed topical treatment for onychomycosis. - Attend follow-up visit with a paint technician as scheduled. - Schedule and complete a pulmonary function test. - Return for colonoscopy screening as part of ongoing surveillance. - Continue lifestyle modifications, such as avoiding smoking and maintaining regular exercise. - Notify the clinic immediately of any new symptoms or changes in health. - Avoid heavy lifting or strenuous activity that may exacerbate back pain. - Follow up in one year or as needed based on symptoms or health changes. Scribe Plan - Not visible on output: History of Present Illness The patient is a 59-year-old male presenting for a follow-up related to various chronic medical conditions. A notable medical history includes mild asthma primarily characterized by intermittent wheezing at nighttime without previous sleep study confirmation. He previously smoked but successfully ceased using nicotine patches this October. The patient also experiences bilateral hand tremor localized to the hands. His past medical treatment includes successful H. pylori eradication. Chronic low back pain, resulting from lumbar disc and herniated disc disease, has been stable without recent exacerbations except following strenuous activity. Regular adjustments from a chiropractor have been instrumental in managing this condition. Regarding gastrointestinal concerns, the patient undergoes biennial colonoscopies prompted by polyp presence, with no acute symptoms noted in the interim. Avoiding previously prescribed medications, he maintains usage of propranolol, reportedly without adverse effects. Regular aquatic activity with family has posed no health challenges. Social History - History of smoking; ceased in October 2023 using nicotine patches. - Engages in physical activities with family, such as swimming. 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 Review of Systems - Respiratory: Denies shortness of breath with exertion or supine, denies asthma attacks during the day. - Gastrointestinal: Denies black or bloody stools, maintains regular bowel movements. Physical Exam Appearance: Alert. Oriented X3. No acute distress. Head: Normal external exam. Normocephalic. Atraumatic. Eyes: Pupils are equal, round, and reactive to light. Extraocular movements intact. Conjunctiva and sclera normal. Eyelids normal. Ears: External auditory canal normal. Tympanic membranes normal. Throat: Pharynx normal. Uvula midline. Moist mucous membranes. Neck: Normal inspection. Neck supple. Full range of motion. No adenopathy. Thyroid Normal. No meningeal signs. No neck mass noted. Cardiovascular: Normal heart rate and rhythm. Heart sound normal. No murmurs noted. Pulses normal throughout. Respiratory: No respiratory distress. Painless inspiration. Breath sounds normal. No wheezes/rales/rhonchi noted. Chest nontender. No accessory muscle usage noted or decreased air movement noted. Abdomen: Soft and nontender. Bowel sounds normal in all 4 quadrants. No distention noted. No organomegaly noted. No visible injury noted. Back: No costovertebral angle tenderness. Full range of motion noted. Skin: Skin warm and dry. Normal skin color. Normal skin turgor. No rashes/lesions/lacerations noted. Extremities: No lower extremity edema. Extremities exhibit normal range of motion. Extremities nontender. Neuro: Oriented X 3. No motor deficit. No sensory deficit. Reflexes normal. Results - Labs: Previous Vitamin D deficiency; current supplementation. - Diagnostics: Pulmonary function test pending due to previous scheduling issues. - Tests: Biennial colonoscopy, last date 01/06/2024, established because of prior polyps history.
[2024-07-12 09:12] VITALS: BP 128/80; PULSE 59; TEMP 36.3; O2SAT 95; BMI 32.9
--- OUTSIDE RECORDS SUMMARY | 2024-07-12 09:37 | XMS_ITS | Patient Health Record ---
Author Organization [facility] Address [address] [place] [address] Care Team Providers Care Backroom Associate Name Role Phone Petrona (RETIRED) Garrison CLINE Primary Care Provid er Unavailable Garrison Mckeon Unavailable [phone] Allergies Allergen (clinical drug ingredient) Drug/Non Drug Allergy documented on EMR Reaction Allergy Type Onset Date Status ibuprofen Ibuprofen Unknown Drug Allergy Active Results Component Value Reference Range Notes Pathology (Not yet reviewed by provider) Interpretation: Performing Lab:[facility], [address] [place] [phone] Notes/Report: Name: Samantha Nogueira Age/Sex: 58/M : 1965 Unit#: [id number] Attend Dr: Garrison Mckeon MD Re01/06/24 Status : [facility] Location: [facility] Disch: SPEC : [id number] RECD : 01/06/24 STATUS: PATRICIA PERRIN NUM: [id number] MICHELLE: 01/06/24-[address] [facility] [address]: Garrison Mckeon MD ENTERED: 01/06/24-14 16 SP TYPE: Surgical OTHR DR: Garrison Russ DO ORDERED: HE Stain/9, Gross Micro L4/3 Diagnosis A. Colon, cecum, leslie ypectomy: Tubular adenoma; negative for high-grade dysplasia. B. Ileocecal valve, ulceration, biopsy: Mildly active colitis (see comment). C. Colon, ascending, ulceration, biopsy: Features consistent with ischemic colitis. COMMENT (B): Neither chronic mucosal injury nor granulomas are seen. The differential diagnosis includes i nfection, drug/medication effect (e.g. NSAIDs) and early idiopathic inflammatory bowel disease. Clinical History Pre-Op Dx: Encounter for screening for malignant neoplasm of colon Post-Op Dx: Colon polyp Microscopic Description Microscopic sections reviewed. Material Received A. Cecal polyp B. Bx from ileocecal valve ulceration C. Bx's of ascending colon area of ulceration on a fold Gross Description Received in three parts. Part A: Received in formalin labeled ?cecal polyp? is a 0.35 cm alan-pink papular tissue fragment along with a 0.35 cm fragment of blood versus mucus versus debris, submitted in toto in a cassette labeled A. Part B: Received in formalin labeled ?bx from ileocecal valve ulceration are 4 alan-pink irregular and rectan gular tissue fragments ranging 0.2-0.35 cm, submitted in toto in a cassette labeled B. Part C: Received in formalin labeled ?bx's of ascending colon area of ulceration on a fold are 3 alan-pink irreg ular and rectangular tissue fragments ranging 0.25-0.5 cm, submitted in toto in a cassette labeled C. CEDS CONTINUED ON NEXT PAGE Name: Samantha Nogueira Age/Sex: 58/M : 1965 Unit#: [id number] Attend Dr: Garrison Mckeon MD Re01/06/24 Status : [facility] Location: [facility] Disch: SPEC : [id number] RECD : 01/06/24 STATUS: PATRICIA PERRIN NUM: [id number] MICHELLE: 01/06/24-[address] [facility] [address]: Garrsion Mckeon MD ENTERED: 01/06/24- 16 SP TYPE: Surgical OTHR DR: Garrison Russ DO ORDERED: MICHELINE Stain/9, Aric Micro L4/3 Copies To: Garrison Russ DO [facility] [address] [place] [address] Garrison Mckeon MD [facility] [address] [place] [address] Signed (si gnature on file) Jennifer Jerome MD 01/07/24 1355 END OF REPORT Reason For Referral Referring Provider First Name Garrison Referring Provider Last Name Petrona (RE TIRED) Referring Provider Speciality Internal M edicine Referred Organization [facility] Referred Provider Garrison Mckeon Referred Address [address] [place] [address],[place] [address],[place], [place],[address], Referred Provider Specialty Gastroentero logy General Notes PabloUnique 024 03:22:46 PM EDT > RE[facility] [facility] [facility] DR FRANCES OFFICE FOR COLON WITH DR MCKEON ON 01-06-24 Referral Priority Routine Medications Medication SIG (Take, Route, Frequency, Duration) Notes Start Date End Date Status Propranolol HCl 10 MG TAKE 1 TABLET BY M OUTH TWICE A DAY. Oral for 90 Tremor Active Fluticasone Propionate 50 MCG/ACT Nasal for 90 Active Vitamin D Active Probiotic Active Qvar RediHaler 40 MCG/ACT 1 puff Inhalat ion Twice a day Active Immunizations Vaccine Route Administration Date Status Comme nts Influenza Unknown 06/25/2021 Refused Social History Tobacco Use: Social History Observation Description Date Details (start date - stop date) Current Smoker NA - NA Tobacco Use/Smoking Question Answer Notes Patient is a current smoker How often do you smoke cigarettes? every day How many cigarettes a day do you smoke? 6-10 How soon after you wake up d o you smoke your first cigarette? 6-30 minutes Are you interested in quitting? Thinking about q uitting Section Notes: Smokes 1/2 ppd; no sig alcoh ol Smokes 1/2 ppd; no sig alcoh ol Smokes 1/2 ppd; no sig alcoh ol Smokes 1/2 ppd; no sig alcoh ol Problems Problem Type SNOMED Code ICD Code Onset Dates Problem Status W/U Status Risk Notes Problem 060868220 Encounter for screening for malignant neoplasm of colon (Z12.11) Active confirmed Problem 767177699 History of adenomatous polyp of colon (Z86.010) Active confirmed Problem 334939719 Abdominal bloating (R14.0) Active confirmed Problem 50776509 Gastritis, unspecified, without bleeding (K29.70) Active confirmed Problem Diverticular disease of colon (648373824) Diverticulosis of large intestine without perforation or abscess without bleeding (K57.30) Active confirmed Problem Screening for malignant neoplasm of rectum (736040095) Encounter for screening for malignant neoplasm of rectum (Z12.12) Active confirmed Problem 97894686 Abdominal pain, epigastric (R10.13) Active confirmed Problem 454778320424328 Preprocedural examination (Z01.818) Active confirmed Problem 1880690 Chronic gastriti s without bleeding, unspecified gastritis type (K29.50) Active confirmed Problem Diverticulosis of colon (939917335) Diverticulosis of colon (K57.30) Active confirmed Vital Signs Blood pressure diastolic 00 mm Hg 09/22/2023 Height 70.5 in 09/22/2023 Blood pressure systolic 00 mm Hg 09/22/2023 Weight 201 lbs 09/22/2023 BMI 28.43 kg/m2 09/22/2023 Encounters Encounter Location Date Provider Diagnosis [facility] [address] [place] [id number] 01/06/2024 Garrison Mckeon Colon cancer screeni ng Z12.11 ; Colon polyps K63.5 ; Ulcer of intestine K63.3 ; Diverticulosis of large intestine without perforation or abscess without bleeding K57.30 and Other hemorrhoids K64.8 [facility] [address] [place] [address] 09/22/2023 Garrison Mckeon Encounter for screen ing for malignant neoplasm of colon Z12.11 ; Preprocedural examination Z01.818 and History of adenomatous polyp of colon Z86.010 Assessments Encounter Date Diagnosis (ICD Code) Assessment Notes Treatment Notes Treatment Clinical Notes Section Notes 01/06/2024 Colon cancer screening (ICD-10 - Z12.11) 01/06/2024 Colon polyps (ICD-10 - K63.5) 09/22/2023 Encounter for screening for malignant neoplasm of colon (ICD-10 - Z12.11) Overall, Casey appears to be doing very well. We did review the findings on his colonoscopy in July of 2021. As such, I recommended a followup colonoscopy for evaluation of the cecal polypectomy site so as to be sure there is no residual adenomatous tissue remaining. We did review the rationale for this in regard to colorectal cancer prevention and/or early detection. Full consent is obtained for this, including risks of bleeding and perforation. The procedure will be done with monitored anesthesia care. Casey was comfortable with this plan. Thank you again for allowing me to participate in Casey's care. I shall continue to keep you advised of his progress. 09/22/2023 Preprocedural examination (ICD-10 - Z01.818) Overall, Casey appears to be doing very well. We did review the findings on his colonoscopy in July of 2021. As such, I recommended a followup colonoscopy for evaluation of the cecal polypectomy site so as to be sure there is no residual adenomatous tissue remaining. We did review the rationale for this in regard to colorectal cancer prevention and/or early detection. Full consent is obtained for this, including risks of bleeding and perforation. The procedure will be done with monitored anesthesia care. Casey was comfortable with this plan. Thank you again for allowing me to participate in Casey's care. I shall continue to keep you advised of his progress. 01/06/2024 Ulcer of intestine (ICD-10 - K63.3) 09/22/2023 History of adenomatous polyp of colon (ICD-10 - Z86.010) Overall, Casey appears to be doing very well. We did review the findings on his colonoscopy in July of 2021. As such, I recommended a followup colonoscopy for evaluation of the cecal polypectomy site so as to be sure there is no residual adenomatous tissue remaining. We did review the rationale for this in regard to colorectal cancer prevention and/or early detection. Full consent is obtained for this, including risks of bleeding and perforation. The procedure will be done with monitored anesthesia care. Casey was comfortable with this plan. Thank you again for allowing me to participate in Casey's care. I shall continue to keep you advised of his progress. 01/06/2024 Diverticulosis of large intestine without perforation or abscess without bleeding (ICD-10 - K57.30) 01/06/2024 Other hemorrhoids (ICD-10 - K64.8) Plan Of Treatment Pending Test Test Name Order Date Pathology 01/06/2024 Future Test Test Name Order Date UPPER GI ENDOSCOPY 02/08/2016 COLONOSCOPY 02/08/2016 COLONOSCOPY 06/25/2021 COLONOSCOPY 09/22/2023 Insurance Providers Payer Name Payer Address Payer Phone Subscriber Number Group Number Insured Name Patient Relationship to Insured Coverage Start Date Coverage End Date [facility] [employer] [address] [place] [address] [id number] CASEY NOGUEIRA Self - patient is the insured Medical (General) History Medical History History ICD Code Denies OK,DM,CVA,renal disease Asthma Allergies/seasonal EGD in 05/2016--Gastritis, er osive duodenitis, H.pylori--treated the H.pylori in 2016 with Biaxin/Amoxicillin/PPI---came off PPI and things have been OK since then Screening colonoscopy in 05/2016-1 tubula r adenoma removed Screening colonoscopy in Jul with a flat adenomatous polyp removed from the cecum, as well as a smaller adenoma removed from elsewhere in the colon Surgical History Surgery Date(Month/Year) Back surgery x 2 1999 and 2000 Right Knee surgery 1998
--- OUTSIDE RECORDS SUMMARY | 2024-07-12 09:37 | XMS_ITS ---
Author Organization [facility] Address [address] [place] [address] Care Team Providers Care Heel Shaper Name Role Phone Petrona (RETIRED) Garrison CLINE Primary Care Provid er Unavailable Garrison Banerjee Unavailable [phone] REASON FOR VISIT screening,hx polyps Problems Problem Type SNOMED Code ICD Code Onset Dates Problem Status W/U Status Risk Notes Problem Diverticular disease of colon (656549262) Diverticulosis of large intestine without perforation or abscess without bleeding (K57.30) Active confirmed Encounters Encounter Location Date Provider Diagnosis [facility] [address], [place] [phone] 01/06/2024 Garrison Chriss Colon cancer scree irma Z12.11 ; Colon [...] Information Progress Notes * CASEY JACKSONDOB:[birth year] (59 yo M)Acc No.[id number]:01/06/2024 COLON WITH MAC Patient:?CASEY JACKSON Provider:?Garrison Banerjee MD :1965???Age:58 Y???Sex:Male Spencer e:01/06/2024 Address:[address] [place] [address] Alex arreaga [facility] Pcp:Garrison Russ (RETIRE D), DO Subjective: * Chief Complaints: * ???1. Screening,hx polyps. * Medical History:? Objective: * Vitals:? Assessment: * Assessment: 1.?Colon cancer screening - Z12.11 (Primary)???2.?Colon polyps - K63.5???3.?Ulcer of intestine - K63.3???4.?Diverticulosis of large intestine without perforation or abscess without bleeding - K57.30???5.?Other hemorrhoids - K64.8??? Plan: * Treatment: * Procedure Codes:?19443 LESIO N REMOVAL COLONOSCOPY, Modifiers: PT , 38716 COLONOSCOPY AND BIOPSY, Modifiers: 59 , PT * * The named appointment provid er may or may not be the originator of this progress note, and it is not deemed complete until electronically signed by the appointment provider. Sign off status: Pending * Provider:?Garrison Banerjee MD Date:? 024 Generated for Alee peralta/Luci/Giovanasmitting on:?07/12/2024 09:36 AM EDT
--- OUTSIDE RECORDS SUMMARY | 2024-07-12 09:37 | XMS_ITS ---
Author Organization [facility] Address [address] [place] [address] Care Team Providers Care Computer Aided Design Designer Name Role Phone Petrona (RETIRED) Garrison CLINE Primary Care Provid er Unavailable Garrison Banerjee Unavailable [phone] REASON FOR VISIT Patient presents today for a screening colonoscopy Encounters Encounter Location Date Provider Diagnosis [facility] [address] [facility] [address] [place] [phone] 05/07/2023 Garrison Banerjee Plan Of Treatment No Information Progress Notes * CASEY JACKSONDOB:[birth year] (59 yo M)Acc No.[id number]:05/07/2023 Progress Notes Patient:?CASEY JACKSON Provider:?Garrison Banerjee MD :1965???Age:58 Y???Sex:Male Spencer e:05/07/2023 Address:[address] [place] [address] [place] [facility] Pcp:Garrison Russ (RETIRE D), Subjective: * Chief Complaints: * ???1. Patient presents today for a screening colonoscopy. * Medical History:? Objective: * Vitals:? Assessment: Plan: * Treatment: * * The named appointment provid er may or may not be the originator of this progress note, and it is not deemed complete until electronically signed by the appointment provider. Sign off status: Pending * Provider:?Garrison Banerjee MD Date:? 024 Generated for Sadii ng/Favickieg/eTransmitting on:?07/12/2024 09:37 AM EDT
--- OUTSIDE RECORDS SUMMARY | 2024-07-12 09:37 | XMS_ITS ---
Author Organization [facility] Address [address] [place] [address] Care Team Providers Care Assembler Musical Instruments Name Role Phone Petrona (RETIRED) Garrison CLINE Primary Care Provid er Unavailable Garrison Banerjee Unavailable [phone] Allergies Allergen (clinical drug ingredient) Drug/Non Drug Allergy documented on EMR Reaction Allergy Type Onset Date Status ibuprofen Ibuprofen Unknown Drug Allergy Active REASON FOR VISIT Patient presents today for a SCREENING COLONOSCOPY Medications Medication SIG (Take, Route, Frequency, Duration) Notes Start Date End Date Status Propranolol HCl 10 MG TAKE 1 TABLET BY M OUTH TWICE A DAY. Oral for 90 Tremor Active Fluticasone Propionate 50 MCG/ACT Nasal for 90 Active Vitamin D Active Probiotic Active Qvar RediHaler 40 MCG/ACT 1 puff Inhalat ion Twice a day Active Social History Tobacco Use: Social History Observation [...] Smokes 1/2 ppd; no sig alcoh ol Vital Signs Blood pressure systolic 00 mm Hg 09/22/19 24 Blood pressure diastolic 00 mm Hg 024 Height 70.5 in 09/22/2023 Weight 201 lbs 09/22/2023 BMI 28.43 kg/m2 09/22/2023 Encounters Encounter Location Date Provider Diagnosis [facility] [address] [place] [address] 09/22/2023 Garrison Banerjee Encounter for screen ing for malignant neoplasm of colon Z12.11 ; Preprocedural examination Z01.818 and History of adenomatous polyp of colon Z86.010 Assessments Encounter Date Diagnosis (ICD Code) Assessment Notes Treatment Notes Treatment Clinical Notes Section Notes 09/22/2023 Encounter for screening for malignant neoplasm of colon (ICD-10 - Z12.11) Overall, Grant appears to be doing very well. We [...] will be done with monitored anesthesia care. Grant was comfortable with this plan. Thank you again for allowing me to participate in Grant's care. I shall continue to keep you advised of his progress. 09/22/2023 Preprocedural examination (ICD-10 - Z01.818) Overall, Grant appears to be doing very well. We [...] will be done with monitored anesthesia care. Grant was comfortable with this plan. Thank you again for allowing me to participate in Grant's care. I shall continue to keep you advised of his progress. 09/22/2023 History of adenomatous polyp of colon (ICD-10 - Z86.010) Overall, Grant appears to be doing very well. We [...] will be done with monitored anesthesia care. Grant was comfortable with this plan. Thank you again for allowing me to participate in Grant's care. I shall continue to keep you advised of his progress. Plan Of Treatment Future Test Test Name Order Date COLONOSCOPY 09/22/2023 Next Appt Details Follow Up: prn, Reason: Progress Notes * GRANT JACKSONDOB:[birth year] (58 yo M)Acc No.[id number]:09/22/2023 Progress Notes Patient:?GRANT JACKSON Provider:?Garrison Banerjee MD :1965???Age:58 Y???Sex:Male Spencer e:09/22/2023 Address:[address] [place], [place] [id number] Pcp:Garrison Russ, DO Subjective: * Chief Complaints: * ???Patient presents today fo r a SCREENING COLONOSCOPY * HPI: ???incontinence:? I saw Grant in followup today in regard to his history of tubular adenomas of the colon and need for followup colorectal cancer screening. ?I last saw Grant in July 2021, at which time he underwent a followup colonoscopy with the finding of a flat tubular adenoma in the cecum. This was removed but given its flat nature, size, and location I recommended a followup colonoscopy within 2-3 years for followup rather than the usual 5. He is presently doing very well. He enjoys a good appetite, without any significant heartburn or dysphagia. His bowel movements have been regular and without any signs of bleeding. He denies abdominal pain, jaundice, nor unintentional weight loss. He denies any known family history of colon cancer. * ROS:?General/Constitutional:?Change in appetite?denies.?Chills?denies.?Fatigue?denies.?Ophthalmologic:?Comments?all negative.?ENT:?Comments?all negative.?Respiratory:?hemoptysis?denies.?Cough?denies.?Cardiovascular:?Chest pain?denies.?Orthopnea?denies.?Gastrointestinal:?Comments?See HPI for details.?Genitourinary:?Hematuria?denies.?Dysuria?denies.?Musculoskeletal:?Painful joints?denies.?Weakness?denies.?Skin:?Itching?denies.?Rash?denies.?Neurologic:?Headache?denies.?Seizures?denies.?Psychiatric:?Comments?all negative.? * Medical History:? * Surgical History:?Back surge ry x 2 1999 and 2000Right Knee surgery 1998 * Hospitalization/Major Diagno stic Procedure:?No Hospitalization History. * Family History:?Father: santosh mcgee, diagnosed with Diabetes.?Mother: , Mother had stomach cancer.? No colorectal cancer. * Social History:?Tobacco Use:?Tobacco Use/Smoking?Patient is a?current smoker,?How often do you smoke cigarettes??every day,?How many cigarettes a day do you smoke??6-10,?How soon after you wake up do you smoke your first cigarette??6-30 minutes,?Are you interested in quitting??Thinking about quitting.?Drugs/Alcohol:?Alcohol Screen?Points: 1, Interpretation: Negative.?Miscellaneous:?Marital status: . Occupation: [employer]--24 years/retired 04/2020. ???Smokes 1/2 ppd; no sig alcohol. * Medications:?TakingQvar Redi Haler 40 MCG/ACT Aerosol Breath Activated 1 puff Inhalation Twice a dayProbiotic Vitamin D Fluticasone Propionate 50 MCG/ACT Suspension Nasal Propranolol HCl 10 MG Tablet TAKE 1 TABLET BY MOUTH TWICE A DAY. Oral , Notes: TremorTaking Qvar RediHaler 40 MCG/ACT Aerosol Breath Activated 1 puff Inhalation Twice a dayTaking Probiotic Taking Vitamin D Taking Fluticasone Propionate 50 MCG/ACT Suspension Nasal Taking Propranolol HCl 10 MG Tablet TAKE 1 TABLET BY MOUTH TWICE A DAY. Oral , Notes: TremorDiscontinuedFlovent Diskus 100 MCG/BLIST Aerosol Powder Breath Activated Inhalation PriLOSEC 20 MG Capsule Delayed Release 1 capsule Orally Once a dayMedication List reviewed and reconciled with the patientDiscontinued Flovent Diskus 100 MCG/BLIST Aerosol Powder Breath Activated Inhalation Discontinued PriLOSEC 20 MG Capsule Delayed Release 1 capsule Orally Once a dayMedication List reviewed and reconciled with the patient * Allergies:?Ibuprofenyes[Brandon rgies Verified] Objective: * Vitals:?Wt: 201 lbs, Ht: 70. 5 in, BMI:28.43 Index, BP: 00/00 mm Hg. * Examination: ???General Examination: ?GENERAL APPEARANCE:?pleasant, well nourished, well developed, in no acute distress.?EYES:?sclera non-icteric.?ORAL CAVITY:?mucosa moist.?NECK/THYROID:?no cervical lymphadenopathy, neck supple.?SKIN:?nonjaundiced, no spider angiomata.?HEART:?S1, S2 normal.?LUNGS:?clear to auscultation bilaterally.?ABDOMEN:?normal bowel sounds, no guarding or rigidity, no guarding or rigidity, no masses palpable, soft, nontender, nondistended.?EXTREMITIES:?no edema.?NEUROLOGIC:?alert and oriented.? Assessment: * Assessment: 1.?Preprocedural examination - Z01.818 (Primary)?2.?Encounter for screening for malignant neoplasm of colon - Z12.11?3.?History of adenomatous polyp of colon - Z86.010? Overall, Grant appears to be doing very well. We [...] will be done with monitored anesthesia care. Grant was comfortable with this plan. Thank you again for allowing me to participate in Grant's care. I shall continue to keep you advised of his progress. Plan: * Treatment: 2.?History of adenomatous polyp of colon?Procedure: COLONOSCOPY (Ordered for 09/22/2023)* with MACsched for 01/06/24 at 11:30 ammiralax * Procedure Codes:?3017F COLOR ECTAL CA SCREEN DOC [id number] Pt scrn tbco and id as [id number] BP SCR NOT PRFRM REC REASON NOS * Preventive Medicine:? ??Counseling:?Care goal follow-up plan:?Above Normal BMI Follow-up?Giving encouragement to exercise,?BMI management provided?Yes.? * Follow Up:?prn * * Sign off status: Completed true * Provider:?Garrison Banerjee MD Date:? 024 Generated for Alee peralta/Luci/eTransmitting on:?07/12/2024 09:37 AM EDT History and Physical Notes * HPI (History of Present Illness) Category Sub-Category Detail Notes Category Not es incontinence I saw Grant in followup today in regard to his history of tubular adenomas of the colon and need for followup colorectal cancer screening. I last saw Grant in July 2021, at which time he underwent a followup colonoscopy with the finding of a flat tubular adenoma in the cecum. This was removed but given its flat nature, size, and location I recommended a followup colonoscopy within 2-3 years for followup rather than the usual 5. He is presently doing very well. He enjoys a good appetite, without any significant heartburn or dysphagia. His bowel movements have been regular and without any signs of bleeding. He denies abdominal pain, jaundice, nor unintentional weight loss. He denies any known family history of colon cancer. Examination Category Sub-Category Detail Notes Category Not es General Examination GENERAL APPEARANCE: pleasant , well nourished, well developed, in no acute distress HEAD: EYES: sclera non-icteric EARS: NOSE: THROAT: NECK/THYROID: no cervical lymphade nopathy, neck supple HEART: S1, S2 normal CHEST: LUNGS: clear to auscultatio n bilaterally ABDOMEN: normal bowel sounds, no guarding or rigidity, no guarding or rigidity, no masses palpable, soft, nontender, nondistended NEUROLOGIC: alert and oriented SKIN: nonjaundiced, no spi marcel angiomata EXTREMITIES: no edema PERIPHERAL PULSES: BACK: BREASTS: MUSCULOSKELETAL: MALE GENITOURINARY: LYMPH NODES: RECTAL EXAM: FEMALE GENITOURINARY: ORAL CAVITY: mucosa moist
== END 2024-07-12 11:08 | disposition home or self-care (01) ==
LOC: HO.HMCSH 08:56
PROVIDERS: PCP Internal Medicine; Visit Provider Internal Medicine
DX: J45.909 Unspecified asthma, uncomplicated (principal); F17.200 Nicotine dependence, unspecified, uncomplicated; M51.26 Other intervertebral disc displacement, lumbar region; M48.00 Spinal stenosis, site unspecified; B35.1 Tinea unguium; R25.1 Tremor, unspecified; E66.811 Obesity, class 1; Z68.32 Body mass index [BMI] 32.0-32.9, adult; Z91.09 Other allergy status, other than to drugs and biological substances

== ENCOUNTER → 2024-07-12 08:55 | Outpatient (BNVA) | payer BC, SELFPAY | PROVIDERS: PCP Internal Medicine; Visit Provider Internal Medicine | DX: M48.00 Spinal stenosis, site unspecified (principal); M51.26 Other intervertebral disc displacement, lumbar region; J45.909 Unspecified asthma, uncomplicated; R25.1 Tremor, unspecified; B35.1 Tinea unguium; E66.811 Obesity, class 1; Z68.32 Body mass index [BMI] 32.0-32.9, adult | CPT/HCPCS: 96127 ==

== ENCOUNTER 2024-07-12 09:03 | Outpatient (AMB) | payer BC, SELFPAY ==
--- NOTE | 2024-07-12 14:42 | MHC.PC.OV ---
Vital Signs 07/12/24 15:11 Height 5 ft 10 in Weight 229 lb BMI 32.9 BP 128/80 Blood Pressure Location Rt brachial Position Sitting Respiration 20 Pulse 59 Pulse Source Pulse Oximeter Temp 97.3 F Temp Source Temporal Artery Scan Pulse Oximetry (%) 95 Oxygen Delivery Method Room Air Intake Visit Reasons: follow up Intake Note: Six-month follow-up denies any issues at this time [employer] Pipef[employer] Required: No Allergies ibuprofen Allergy (Verified 07/12/24 15:13) Unknown Medication List - Last Reconciled 07/12/24 by Re King PA-C albuterol sulfate 90 mcg/actuation 2 inhalations inhalation Q4H PRN ascorbic acid (vitamin C) 1 g PO DAILY beclomethasone dipropionate 40 mcg/actuation (Qvar RediHaler) 1 inh inhalation BID efinaconazole 10% 1 appl topical BEDTIME 48 weeks fluticasone propionate 50 mcg/actuation 1 spray intranasal DAILY [Probiotic 1 mg PO DAILY] propranolol 10 mg PO BID 90 days [Vitamin D3 ] PFSH Medical History (Updated 07/12/24 @ 15:16 by Re King PA-C) Class 1 obesity with body mass index (BMI) of 32.0 to 32.9 in adult Nicotine dependence Tremor Helicobacter pylori gastritis Onychomycosis Lumbar herniated disc Degenerative disc disease Allergies Spinal stenosis Seasonal allergies GERD (gastroesophageal reflux disease) Asthma Surgical History Hx of knee surgery History of back surgery Hx of colonoscopy (~01/06/24) History of esophagogastroduodenoscopy (EGD) Social History Are you a primary director critical care to a significant other at home: No Do you presently have visiting nurse or other home services: No Patient Tobacco Use Status: Former Tobacco user Tobacco use type: Cigarette Cigarettes Per Day: 10 Years Smoked: started approx 15 yrs old, 1/2 ppd, quit this past thursday Questionnaire PHQ-9 Over the last 2 weeks, how often have you been bothered by any of the following problems? 1. Little interest or pleasure in doing things: not at all 2. Feeling down, depressed, or hopeless: not at all 3. Trouble falling or staying asleep, or sleeping too much: not at all 4. Feeling tired or having little energy: not at all 5. Poor appetite or overeating: not at all 6. Feeling bad about yourself - or that you are a failure or have let yourself or your family down: not at all 7. Trouble concentrating on things, such as reading the newspaper or watching television: not at all 8. Moving or speaking so slowly that other people could have noticed. Or the opposite - being so fidgety or restless that you have been moving around a lot more than usual: not at all 9. Thoughts that you would be better off or of hurting yourself in some way: not at all Total score: 0 Depression Screening Interpretation: Negative Depression Screening Done: Yes 06245 - PHQ-9 Billing: Yes Source: Developed by Drs. Garrison Durand, Lupis Bailey, Charles Link and colleagues, with an educational alise from [employer]. Thrive Questionnaire Date Thrive assessed: 07/12/24 I am a: Patient What is your living situation today?: I have a steady place to live Within the past 12 months, did the food you bought not last and you didn't have the money to get more?: Never true Within the past 12 months, did you worry whether your food would run out before you got money to buy more?: Never true Do you have trouble paying for medicines?: No Do you have trouble getting transportation to medical appointments?: No Do you have trouble paying your heating and electricity bill?: No Do you have trouble taking care of your child, family member or friend?: No Do you have trouble with day-to-day activities such as bathing, preparing meals, shopping, managing finances, etc.?: No Are you currently unemployed and looking for a job?: No Are you interested in more education?: No Please select the resources that you would like help with: None THRIVE Score: 0 AUDIT C Alcohol Use Questionnaire (AUDIT-C) 1. How often do you have a drink containing alcohol?: Never 3. How often do you have six or more drinks on one occasion?: Never Total Score: 0 Score Reviewed/Action Taken: Yes LYSSA-7 AMB Questionnaire LYSSA-7 Date LYSSA - 7 assessed: 04/01/25 Feeling nervous, anxious, or on edge: 0 = Not at all Not being able to stop or control worryin = Not at all Worrying too much about different things: 0 = Not at all Trouble relaxin = Not at all Being so restless that it is hard to sit still: 0 = Not at all Becoming easily annoyed or irritable: 0 = Not at all Feeling afraid as if something awful might happen: 0 = Not at all Total LYSSA-7 score (0-4 normal; 5-9 mild; 10-14 moderate; 15-21 severe): 0 Source: Developed by Drs. Garrison Durand, Lupis Bailey, Charles Link and colleagues, with an educational alise from [employer]. LYSSA-7 Assessment Billing LYSSA-7 Assessment Tool: LYSSA-7 Assessment 81101 Physical exam (Primary Care) Care Plan Goal for BP management: <130/80 at Goal BMI Assessment/Plan discussion: High BMI High, discussed plan: lifestyle, weight reduction, dietary, physical activity and alcohol moderation Tobacco/Smoking Status: Tobacco use Status Patient Tobacco Use Status Former Tobacco user 01/06/24 13:07 Tobacco use type Cigarette 10/21/23 09:59 Depression Screening Interpretation: Negative Coding Level of Care Code New Pt Level 4 (66132) Complex EM visit Add On G2211 Diagnoses Degenerative disc disease Spinal stenosis M48.00 Lumbar herniated disc M51.26 Asthma J45.909 Tremor R25.1 Onychomycosis B35.1 Class 1 obesity with body mass index (BMI) of 32.0 to 32.9 in adult E66.811; Z68.32 Additional Codes PHQ-9 - 55676 - PHQ-9 Billing: Yes ([id number]) LYSSA-7 Assessment Billing - LYSSA-7 Assessment Tool: LYSSA-7 Assessment 12381 ([id number]) Assessment & Plan Assessment & Plan (1) Degenerative disc disease: Category: Medical Plan: Maintain regular chiropractic adjustments; monitor for potential pain exacerbation, particularly with activity. (2) Spinal stenosis: Code(s): M48.00 - Spinal stenosis, site unspecified Category: Medical Plan: Maintain regular chiropractic adjustments; monitor for potential pain exacerbation, particularly with activity. (3) Lumbar herniated disc: Code(s): M51.26 - Other intervertebral disc displacement, lumbar region Category: Medical Plan: Maintain regular chiropractic adjustments; monitor for potential pain exacerbation, particularly with activity. (4) Asthma: Code(s): J45.909 - Unspecified asthma, uncomplicated Category: Medical Plan: Manage asthma through continued symptom monitoring. Pursue completion of pulmonary function testing to explore possible obstructive airway disease discrepancies. (5) Tremor: Comment: Hands B/l Code(s): R25.1 - Tremor, unspecified Category: Medical Plan: Propranolol treatment persists as effective management. Further diagnostic intervention remains unnecessary unless symptom exacerbation occurs. (6) Onychomycosis: Code(s): B35.1 - Tinea unguium Category: Medical Plan: Initiate topical antifungal medication; refer to podiatry for specialized evaluation and ongoingmanagement. (7) Class 1 obesity with body mass index (BMI) of 32.0 to 32.9 in adult: Code(s): E66.811 - Obesity, class 1; Z68.32 - Body mass index [BMI] 32.0-32.9, adult Category: Medical Plan: Patient to improve his diet and exercise regimen. Condition is chronic and stable continue to monitor. Plan Plan Patient was informed and verbally consented to the use of an ambient scribe for clinic note documentation during this visit. 1. Chronic Low Back Pain Due To Lumbar Disc Disease Maintain regular chiropractic adjustments; monitor for potential pain exacerbation, particularly with activity. 2. Environmental Allergies Consider antihistamines if symptomatically necessary; monitor environmental exposure types relevant to history. 3. Onychomycosis Initiate topical antifungal medication; refer to podiatry for specialized evaluation and ongoingmanagement. 4. Encounter for screening for malignant neoplasm of colon Continue with biennial colonoscopies for polyp detection and management as per previous findings. 5. Tremor, unspecified Propranolol treatment persists as effective management. Further diagnostic intervention remains unnecessary unless symptom exacerbation occurs. 6. Helicobacter Pylori Infection Continue monitoring post-treatment status. No immediate concerns warrant ongoing therapy. 7. Asthma Manage asthma through continued symptom monitoring. Pursue completion of pulmonary function testing to explore possible obstructive airway disease discrepancies. Discussion Notes I took time to explain to the patient the nature and implications of his conditions and outlined the current management plans. We discussed the benefit of completing a pulmonary function test to clarify any concerns regarding asthma and airway disease. Exploring the pharmaceutical and podiatric management of onychomycosis was prioritized, understanding the pros and cons of topical versus systemic treatment. We reviewed the patient's decision to cease smoking and recognized the health benefits following this change. I underscored the significance of routine check-ups, particularly regarding colonoscopy due to prior findings of polyps. Patient agreed with the proposed plans and was reassured about the current stability of his conditions. Patient Instructions: Patient Instructions - Continue using propranolol for hand tremor management. - Initiate application of prescribed topical treatment for onychomycosis. - Attend follow-up visit with a director traffic and planning as scheduled. - Schedule and complete a pulmonary function test. - Return for colonoscopy screening as part of ongoing surveillance. - Continue lifestyle modifications, such as avoiding smoking and maintaining regular exercise. - Notify the clinic immediately of any new symptoms or changes in health. - Avoid heavy lifting or strenuous activity that may exacerbate back pain. - Follow up in one year or as needed based on symptoms or health changes. Scribe Plan - Not visible on output: History of Present Illness The patient is a 59-year-old male presenting for a follow-up related to various chronic medical conditions. A notable medical history includes mild asthma primarily characterized by intermittent wheezing at nighttime without previous sleep study confirmation. He previously smoked but successfully ceased using nicotine patches this October. The patient also experiences bilateral hand tremor localized to the hands. His past medical treatment includes successful H. pylori eradication. Chronic low back pain, resulting from lumbar disc and herniated disc disease, has been stable without recent exacerbations except following strenuous activity. Regular adjustments from a chiropractor have been instrumental in managing this condition. Regarding gastrointestinal concerns, the patient undergoes biennial colonoscopies prompted by polyp presence, with no acute symptoms noted in the interim. Avoiding previously prescribed medications, he maintains usage of propranolol, reportedly without adverse effects. Regular aquatic activity with family has posed no health challenges. Social History - History of smoking; ceased in October 2023 using nicotine patches. - Engages in physical activities with family, such as swimming. - Receives regular family member caretaker every four weeks for back maintenance. Review of Systems - Respiratory: Denies shortness of breath with exertion or supine, denies asthma attacks during the day. - Gastrointestinal: Denies black or bloody stools, maintains regular bowel movements. Physical Exam Appearance: Alert. Oriented X3. No acute distress. Head: Normal external exam. Normocephalic. Atraumatic. Eyes: Pupils are equal, round, and reactive to light. Extraocular movements intact. Conjunctiva and sclera normal. Eyelids normal. Ears: External auditory canal normal. Tympanic membranes normal. Throat: Pharynx normal. Uvula midline. Moist mucous membranes. Neck: Normal inspection. Neck supple. Full range of motion. No adenopathy. Thyroid Normal. No meningeal signs. No neck mass noted. Cardiovascular: Normal heart rate and rhythm. Heart sound normal. No murmurs noted. Pulses normal throughout. Respiratory: No respiratory distress. Painless inspiration. Breath sounds normal. No wheezes/rales/rhonchi noted. Chest nontender. No accessory muscle usage noted or decreased air movement noted. Abdomen: Soft and nontender. Bowel sounds normal in all 4 quadrants. No distention noted. No organomegaly noted. No visible injury noted. Back: No costovertebral angle tenderness. Full range of motion noted. Skin: Skin warm and dry. Normal skin color. Normal skin turgor. No rashes/lesions/lacerations noted. Extremities: No lower extremity edema. Extremities exhibit normal range of motion. Extremities nontender. Neuro: Oriented X 3. No motor deficit. No sensory deficit. Reflexes normal. Results - Labs: Previous Vitamin D deficiency; current supplementation. - Diagnostics: Pulmonary function test pending due to previous scheduling issues. - Tests: Biennial colonoscopy, last date 01/06/2024, established because of prior polyps history.
[2024-07-12 15:11] VITALS: BP 128/80; PULSE 59; RESP 20; TEMP 36.3; O2SAT 95; BMI 32.9
== END 2024-07-12 09:39 | disposition home or self-care (01) ==
LOC: HO.HMCSH 09:03
PROVIDERS: PCP Internal Medicine; Visit Provider Physician Assistant Medical
DX: M48.00 Spinal stenosis, site unspecified (principal); M51.26 Other intervertebral disc displacement, lumbar region; J45.909 Unspecified asthma, uncomplicated; R25.1 Tremor, unspecified; B35.1 Tinea unguium; E66.811 Obesity, class 1; Z68.32 Body mass index [BMI] 32.0-32.9, adult

== ENCOUNTER 2024-07-27 12:50 | Outpatient (REF) | payer BC, SELFPAY ==
--- NOTE | 2024-07-27 12:55 | PFT_ITS ---
Indication: Asthma Spirometry [FEV1 to FVC 67%; FEV1 2.98 L; FVC 4.44 L. No significant response to bronchodilators noted.] Lung Volumes [Total lung capacity 90% predicted; residual volume 101% predicted] Diffusion Capacity [DLCO 108% predicted] Comparisons [none] Interpretation [There is an obstructive ventilatory defect consistent with moderate COPD. No significant response to bronchodilators noted. Lung volumes are within normal limits. Diffusing capacity also is within normal limits. Clinical correlation warranted.] MTDD
[2024-07-27 13:38] VITALS: PULSE 59; O2SAT 97
== END 2024-07-27 12:51 | disposition home or self-care (01) ==
LOC: HO.RESP 12:50
PROVIDERS: PCP Internal Medicine; Visit Provider Physician Assistant Medical
DX: J45.909 Unspecified asthma, uncomplicated (principal); F17.200 Nicotine dependence, unspecified, uncomplicated
CPT/HCPCS: 94010; 94640; 94727; 94729

== ENCOUNTER → 2024-07-27 12:55 | Outpatient (BNV) | payer BC, SELFPAY | PROVIDERS: PCP Internal Medicine; Visit Provider Hospitalist | DX: J45.909 Unspecified asthma, uncomplicated (principal); F17.210 Nicotine dependence, cigarettes, uncomplicated | CPT/HCPCS: 94060; 94727; 94729 ==

== ENCOUNTER 2024-08-30 10:06 | Outpatient (AMB) | payer BC, SELFPAY ==
[2024-08-30 10:09] VITALS: BP 120/74; PULSE 51; O2SAT 95; BMI 30.8
--- NOTE | 2024-08-30 10:09 | MHC.OFFVIS ---
Vital Signs 08/30/24 10:09 Height 5 ft 10 in Weight 214 lb 8 oz BMI 30.8 BP 120/74 Blood Pressure Location Rt brachial Position Sitting Pulse 51 Pulse Source Pulse Oximeter Pulse Oximetry (%) 95 Oxygen Delivery Method Room Air Intake Visit Reasons: asthma Allergies ibuprofen Allergy (Verified 08/30/24 10:13) Unknown HPI HPI asthma: Details: Grant is a pleasant 59 year old, former 20 pack year smoker, quit approximately 1 year ago with underlying asthma, environmental allergies, VIKKI and GERD. He was initially referred by PCP for pulmonary evaluation for worsening asthma control since having COVID in May 2019. He reports symptoms have been well controlled on QVAR up until recently when he began developing bronchitic symptoms last week with productive cough with yellow sputum, pleuritic discomfort and increased dyspnea/chest tightness. He endorses chills initially, denies fevers and reports sick contacts, grandchildren with URI. He has trialed mucinex with some improvement, denies urgent care visit. Today he presents to review PFT. [facility] Medical History (Updated 08/30/24 @ 20:39 by Cierra Servin NP) COPD (chronic obstructive pulmonary disease) Class 1 obesity with body mass index (BMI) of 32.0 to 32.9 in adult Nicotine dependence Tremor Helicobacter pylori gastritis Onychomycosis Lumbar herniated disc Degenerative disc disease Allergies Spinal stenosis Seasonal allergies GERD (gastroesophageal reflux disease) Asthma Surgical History Hx of knee surgery History of back surgery Hx of colonoscopy (~01/06/24) History of esophagogastroduodenoscopy (EGD) Social History Are you a primary rn patient care to a significant other at home: No Do you presently have visiting nurse or other home services: No Patient Tobacco Use Status: Former Tobacco user Tobacco use type: Cigarette Cigarettes Per Day: 10 Years Smoked: started approx 15 yrs old, 1/2 ppd, quit this past thursday Review of Systems Const Denies excessive sweating, Denies fever(s), Denies headache(s) and Denies night sweats Eyes Denies dry eyes, Denies irritation and Denies itchy eyes ENT Reports Normal hearing present, Denies headache(s), Denies nasal congestion, Denies nasal discharge, Denies post nasal drip and Denies sore throat Card Denies chest pain, Denies chest pain at rest, Denies chest pain with activity, Denies claudication, Denies leg edema, Denies orthopnea and Denies paroxysmal nocturnal dyspnea Resp Denies excessive phlegm production, Denies pain on inspiration, Denies pain with cough and Denies stridor Musc Denies myalgias Neuro Reports Normal hearing present and Denies headache(s) Endo Denies excessive sweating Bernardo/Lymph Denies lymphadenopathy Aller/Immun Denies itchy eyes and Denies seasonal rhinorrhea Physical Exam Vital Signs: Last Vital Signs Pulse 51 08/30/24 10:09 BP 120/74 08/30/24 10:09 Pulse Ox 95 08/30/24 10:09 Oxygen Delivery Method Room Air 08/30/24 10:09 BMI result Body Mass Index 30.8 Const General: cooperative, healthy appearing, comfortable, no acute distress, well developed and alert Orientation/consciousness: patient oriented x3 Limitations: no limitations HEENT Head: Yes normal to inspection, Yes normocephalic and Yes atraumatic Ears: hearing grossly normal bilaterally and external ears normal Eyes General: appearance normal, both eyes and all related structures Eyelids: Yes eyelids normal Sclerae: sclerae normal EOM: EOMs intact bilaterally Neck Neck: Yes normal visual inspection and Yes no lymphadenopathy Lymphatic: no lymphadenopathy noted Chest Chest palpation & inspection: normal inspection of the chest Resp Effort & Inspection: normal respiratory effort, able to speak in complete sentences, no audible wheezes, no stridor, not tachypneic, no tripod positioning and no use of accessory muscles Auscultation: crackles (LLL), rhonchi and rub present Cardio Jugular venous distension: no JVD Rate: regular rate Rhythm: regular rhythm Skin Other: warm, dry General skin exam: no rashes or lesions noted Neuro General: patient oriented x3 Cranial nerves: Yes Normal hearing present Cognition (Neuro): normal cognition Gait exam (Neuro): Normal gait present Extrem General: Yes normal to inspection, Yes capillary refill normal, Yes no clubbing, cyanosis or edema and Yes no pedal edema Psych Appearance: grossly normal and well kempt Speech and movement: Normal speech and movement present and Clear speech present Affect: normal affect Attitude: cooperative Thought process: Normal thought process present Thought content: Normal thought content present Insight: Good insight present (Psych) Judgement: Good judgement present (Psych) Assessment & Plan Assessment & Plan (1) Asthma: Code(s): J45.909 - Unspecified asthma, uncomplicated Category: Medical (2) Personal history of tobacco use: Code(s): Z87.891 - Personal history of nicotine dependence Category: Social Hx (3) Bronchitis: Code(s): J40 - Bronchitis, not specified as acute or chronic Category: Medical (4) COPD (chronic obstructive pulmonary disease): Code(s): J44.9 - Chronic obstructive pulmonary disease, unspecified Category: Medical Plan Will treat bronchitic symptoms with prednisone and azithromycin. Patient aware to call if symptoms do not improve and will send for CXR. Reviewed PFT which revealed an obstructive ventilatory defect consistent with moderate COPD. No significant response to bronchodilators noted. Lung volumes are within normal limits. Diffusing capacity also is within normal limits. At baseline, feels respiratory symptoms are well controlled with QVAR and albuterol MDI, encouraged to continue. He is aware if symptoms become less controlled will increase to ICS/LABA. All questions were answered and patient is in agreement of plan. Will follow up in 3-6 months or sooner if needed. Medications: New albuterol sulfate 90 mcg/actuation 2 inhalations inhalation Q4H PRN 1 ea 3RF Shortness Of Breath Or Wheezing azithromycin For 250 mg dose pack: take 500 mg today (day 1), then 250 mg for 4 days (days 2-5) PO 6 tabs 0RF beclomethasone dipropionate 40 mcg/actuation (Qvar RediHaler) 1 inh inhalation BID 10.6 grams 11RF prednisone 40 mg (2 x 20 mg) PO DAILY 10 tabs 0RF Coding Level of Care Code Est Pt Level 4 (71692) Diagnoses Asthma J45.909 Personal history of tobacco use Z87.891 Bronchitis J40 COPD (chronic obstructive pulmonary disease) J44.9
== END 2024-08-30 10:40 | disposition home or self-care (01) ==
LOC: HO.HPSW 10:07
PROVIDERS: PCP Internal Medicine; Visit Provider Nurse Practitioner Family
DX: J45.909 Unspecified asthma, uncomplicated (principal); Z87.891 Personal history of nicotine dependence; J40 Bronchitis, not specified as acute or chronic; J44.9 Chronic obstructive pulmonary disease, unspecified
CPT/HCPCS: 99214

== ENCOUNTER 2024-09-29 09:57 | Outpatient (REF) | payer BC, SELFPAY ==
[2024-09-29 13:25] LABS: Alanine Aminotransferase 24 U/L (0-40); Albumin Level 4.5 g/dL (3.5-5.0); Alkaline Phosphatase 46 U/L (39-117); Aspartate Amino Transferase 27 U/L (5-37); Bilirubin Direct 0.2 mg/dL (0.0-0.5); Bilirubin Total 0.4 mg/dL (0.0-1.0); Total Protein 6.9 g/dL (6.5-8.0)
== END 2024-09-29 09:58 | disposition home or self-care (01) ==
LOC: HO.HMGCLDS 09:57
PROVIDERS: PCP Internal Medicine; Visit Provider Student in an Organized Health Care Education/Training Program
DX: Z13.89 Encounter for screening for other disorder (principal)
CPT/HCPCS: 36415; 80076

== ENCOUNTER 2024-12-08 13:50 | Outpatient (REF) | payer BC, SELFPAY ==
[2024-12-08 16:30] LABS: Alanine Aminotransferase 23 U/L (0-40); Albumin Level 4.3 g/dL (3.5-5.0); Alkaline Phosphatase 78 U/L (39-117); Aspartate Amino Transferase 25 U/L (5-37); Total Protein 7.1 g/dL (6.5-8.0)
== END 2024-12-08 13:51 | disposition home or self-care (01) ==
LOC: HO.HMGCLDS 13:50
PROVIDERS: PCP Internal Medicine; Visit Provider Student in an Organized Health Care Education/Training Program
DX: B35.1 Tinea unguium (principal)
CPT/HCPCS: 36415; 80076

== ENCOUNTER 2025-01-09 11:07 | Outpatient (AMB) | payer BC, SELFPAY ==
[2025-01-09 11:10] VITALS: BP 115/60; PULSE 62; RESP 14; TEMP 36.6; O2SAT 96; BMI 27.5
--- NOTE | 2025-01-09 11:10 | A.OFFPC_ITS ---
Vital Signs 01/09/25 11:10 Height 5 ft 10 in Weight 192 lb BMI 27.5 BP 115/60 Respiration 14 Pulse 62 Pulse Source Pulse Oximeter Temp 97.8 F Temp Source Temporal Artery Scan Pulse Oximetry (%) 96 Oxygen Delivery Method Room Air Intake Visit Reasons: follow up Knocker Off Required: No Accompanied by: Self / Same As Patient Allergies ibuprofen Allergy (Verified 01/09/25 11:10) Unknown Tobacco use date assessed: 01/09/25 Dental Screening Dental Screen Date: 01/09/25 Did you have a dental visit in the last 12 months?: Yes Did you have a dental problem in the last 6 months where you did not have access to dental care?: No Was dental information given to patient?: Patient has dentist [facility] Medical History COPD (chronic obstructive pulmonary disease) Class 1 obesity with body mass index (BMI) of 32.0 to 32.9 in adult Nicotine dependence Tremor Helicobacter pylori gastritis Onychomycosis Lumbar herniated disc Degenerative disc disease Allergies Spinal stenosis Seasonal allergies GERD (gastroesophageal reflux disease) Asthma Surgical History Hx of knee surgery History of back surgery Hx of colonoscopy (~01/06/24) History of esophagogastroduodenoscopy (EGD) Family History (Updated 01/09/25 @ 11:18 by TINO Whitt) Father Diabetes Mother No problems noted. Social History (Updated 01/09/25 @ 11:18 by TINO Whitt) Housing: House Are you a primary child day care center worker to a significant other at home: No Do you presently have visiting nurse or other home services: No Alcohol intake: current Alcohol intake frequency: does not drink Patient Tobacco Use Status: Former Tobacco user Tobacco use type: Cigarette Cigarettes Per Day: 10 Years Smoked: started approx 15 yrs old, 1/2 ppd, quit this past thursday service: No Current occupational status: retired Cognitive needs: No Hearing needs: No Vision needs: Yes (rx glasses) Questionnaire PHQ-9 Over the last 2 weeks, how often have you been bothered by any of the following problems? 1. Little interest or pleasure in doing things: not at all 2. Feeling down, depressed, or hopeless: not at all 3. Trouble falling or staying asleep, or sleeping too much: not at all 4. Feeling tired or having little energy: not at all 5. Poor appetite or overeating: not at all 6. Feeling bad about yourself - or that you are a failure or have let yourself or your family down: not at all 7. Trouble concentrating on things, such as reading the newspaper or watching television: not at all 8. Moving or speaking so slowly that other people could have noticed. Or the opposite - being so fidgety or restless that you have been moving around a lot more than usual: not at all 9. Thoughts that you would be better off or of hurting yourself in some way: not at all Total score: 0 Depression Screening Interpretation: Negative Depression Screening Done: Yes 66756 - PHQ-9 Billing: Yes Source: Developed by Drs. Garrison Durand, Lupis Bailey, Charles Link and colleagues, with an educational alise from [employer]. Thrive Questionnaire Date Thrive assessed: 07/12/24 I am a: Patient What is your living situation today?: I have a steady place to live Within the past 12 months, did the food you bought not last and you didn't have the money to get more?: Never true Within the past 12 months, did you worry whether your food would run out before you got money to buy more?: Never true Do you have trouble paying for medicines?: No Do you have trouble getting transportation to medical appointments?: No Do you have trouble paying your heating and electricity bill?: No Do you have trouble taking care of your child, family member or friend?: No Do you have trouble with day-to-day activities such as bathing, preparing meals, shopping, managing finances, etc.?: No Are you currently unemployed and looking for a job?: No Are you interested in more education?: No Please select the resources that you would like help with: None THRIVE Score: 0 AUDIT C Alcohol Use Questionnaire (AUDIT-C) 1. How often do you have a drink containing alcohol?: Never 3. How often do you have six or more drinks on one occasion?: Never Total Score: 0 Score Reviewed/Action Taken: Yes LYSSA-7 AMB Questionnaire LYSSA-7 Date LYSSA - 7 assessed: 07/12/24 Feeling nervous, anxious, or on edge: 0 = Not at all Not being able to stop or control worryin = Not at all Worrying too much about different things: 0 = Not at all Trouble relaxin = Not at all Being so restless that it is hard to sit still: 0 = Not at all Becoming easily annoyed or irritable: 0 = Not at all Feeling afraid as if something awful might happen: 0 = Not at all Total LYSSA-7 score (0-4 normal; 5-9 mild; 10-14 moderate; 15-21 severe): 0 Source: Developed by Drs. Garrison Durand, Lupis Bailey, Charles Link and colleagues, with an educational alise from [employer]. LYSSA-7 Assessment Billing LYSSA-7 Assessment Tool: LYSSA-7 Assessment 20379 Physical exam (Primary Care) Vital Signs: Last Vital Signs Temp 97.8 F 01/09/25 11:10 Pulse 62 01/09/25 11:10 Resp 14 01/09/25 11:10 BP 115/60 01/09/25 11:10 Pulse Ox 96 01/09/25 11:10 Oxygen Delivery Method Room Air 01/09/25 11:10 BMI result Body Mass Index 27.5 Tobacco/Smoking Status: Tobacco use Status Tobacco use date assessed 01/09/25 01/09/25 11:13 Patient Tobacco Use Status Former Tobacco user 01/09/25 11:18 Tobacco use type Cigarette 01/09/25 11:18 PHQ-9: PHQ-9 Score PHQ-9: Total score 0 01/09/25 11:13 Depression Screening Interpretation: Negative Thrive Assessment: Date of Thrive Assessment Date Thrive assessed 07/12/24 01/09/25 11:13 Coding Level of Care Code Est Pt Level 4 (31639) Complex EM visit Add On G2211 Diagnoses Inflammatory arthritis M19.90 Additional Codes LYSSA-7 Assessment Billing - LYSSA-7 Assessment Tool: LYSSA-7 Assessment 03000 ([id number]) PHQ-9 - 13011 - PHQ-9 Billing: Yes ([id number]) Assessment & Plan Assessment & Plan (1) Inflammatory arthritis: Code(s): M19.90 - Unspecified osteoarthritis, unspecified site Plan: History of Present Illness - The patient is a 59-year-old male presenting with joint pain and evaluation of arthritis. - The patient was referred to a medical record specialist in July for foot fungus and was prescribed terbinafine in September. - After a month of terbinafine treatment, the patient began experiencing joint pain in the fingers, neck, and shoulders. - The patient discontinued terbinafine in November due to the severity of the joint pain. - The foot fungus improved with treatment, but joint pain persisted. 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 - Blood work was ordered to evaluate liver function and potential arthritis, but only liver function tests were completed. - The patient was prescribed prednisone, which initially improved symptoms by 90%, but the pain returned after discontinuation. - The patient has a known allergy to ibuprofen, causing hand swelling. - The patient occasionally uses Advil and Tylenol for pain relief, with limited effectiveness. 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 - The patient spends time at home taking care of grandchildren and his . Review of Systems - Musculoskeletal: Reports joint pain in fingers, neck, and shoulders. Reports trigger finger. Denies elbow pain. - Gastrointestinal: Denies any issues. - Allergic/Immunologic: Reports allergic reaction to ibuprofen with hand swelling. Physical Exam General: Cooperative and healthy appearing Nutritional Appearance: Well nourished Orientation/consciousness: Patient oriented x3 Limitations: No limitations Head: Normal to inspection General: Appearance normal, both eyes and all related structures Neck: Normal visual inspection Chest: Normal palpation of entire chest wall Respiratory: Patient is taking inhalers, but no other respiratory medications mentioned. ormal respiratory effort Neurology: Patient oriented x3, reports joint pain in hands, neck, and shoulders, possibly related to medication. Reports difficulty closing hands and significant pain upon waking. History of trigger finger and past hand injuries. Results - Labs: Liver function tests were completed, but no arthritis-specific tests were conducted. Plan - Order blood work to evaluate for inflammatory markers and potential arthritis. - Prescribe meloxicam for daily use to manage joint pain, considering the patient's allergy to ibuprofen. - Advise the patient to take meloxicam with food and monitor for any adverse reactions. - Discuss the need for further evaluation if blood work indicates elevated inflammatory markers, including potential rheumatoid arthritis. Discussion Notes I discussed with the patient the likelihood of inflammatory arthritis and the need for further blood work to evaluate inflammatory markers. We reviewed the risks and benefits of starting meloxicam, considering his allergy to ibuprofen, and the importance of taking it with food. I advised monitoring for any adverse reactions and explained that further evaluation might be necessary if the blood work indicates elevated inflammatory markers, including checking for rheumatoid arthritis. Patient Instructions - Take meloxicam once daily with food. - Monitor for any side effects and report them immediately. - Complete the blood work as ordered to evaluate for arthritis. - Follow up for further evaluation if blood work shows elevated inflammatory markers. Orders: Orders Lyme IgG/IgM w/reflex to WB Today M19.90 - Unspecified osteoarthritis, unspecified site Medications: New meloxicam 15 mg PO DAILY 30 tabs 0RF
== END 2025-01-09 12:00 | disposition home or self-care (01) ==
LOC: HO.HMCSH 11:07
PROVIDERS: PCP Internal Medicine; Visit Provider Internal Medicine
DX: M19.90 Unspecified osteoarthritis, unspecified site (principal)

== ENCOUNTER 2025-01-09 11:07 | Outpatient (REF) | payer BC, SELFPAY ==
[2025-01-10 11:19] LABS: Lyme Abs Screen <0.90 index
== END 2025-01-09 11:08 | disposition home or self-care (01) ==
LOC: HO.HMGCLDS 11:07
PROVIDERS: PCP Internal Medicine; Visit Provider Internal Medicine
DX: M19.90 Unspecified osteoarthritis, unspecified site (principal)
CPT/HCPCS: 36415; 86617; 86618; 96127

== ENCOUNTER 2025-01-12 06:44 | Outpatient (REF) | payer BC, SELFPAY ==
[2025-01-12 10:30] LABS: MANUAL DIFF FLAG NO
[2025-01-12 10:46] LABS: Hematocrit 42.1 % (42.0-52.0); Hemoglobin 14.3 g/dl (14.0-18.0); Imm Gran Abs Auto 0.01 X10*3/uL (0.00-0.03); Imm Gran Pct Auto 0.2 % (0.0-0.4); Lymphocytes Absolute Auto 2.1 X10*3/uL (1.2-4.9); Mean Corpuscular HGB Conc 34.0 g/dl (31.0-36.0); Mean Corpuscular Hemoglobin 31.4 pg (27.0-33.0); Mean Corpuscular Volume 92.5 fL (80.0-98.0); NRBC Abs Auto 0.000 X10*3/uL (0.0-0.012); NRBC Pct Auto 0.0 /100WBC (0.0-0.2); Platelet Count 331 X10*3/uL (160-400); Red Blood Count 4.55 X10*6/uL (4.60-5.80); White Blood Count 6.1 X10*3/uL (4.8-10.8)
[2025-01-12 11:10] LABS: Alanine Aminotransferase 22 U/L (0-40); Albumin Level 4.2 g/dL (3.5-5.0); Alkaline Phosphatase 64 U/L (39-117); Anion Gap 12 (12-20); Aspartate Amino Transferase 26 U/L (5-37); Blood Urea Nitrogen 12 mg/dL (9-16); Calcium 9.2 mg/dL (8.4-10.2); Carbon Dioxide 25 mmol/L (22-29); Chloride 106 mmol/L (96-108); Cholesterol 150 mg/dL (<200); Estimated Glomerular Filt Rate > 60; HDL Cholesterol 49 mg/dL (>40); Magnesium 2.1 mg/dL (1.6-2.6); Potassium 4.0 mmol/L (3.3-5.1); Sodium 139 mmol/L (135-145); Total Protein 6.9 g/dL (6.5-8.0); Triglycerides 93 mg/dL (<150)
[2025-01-12 11:14] LABS: PSA,Total (Free>4and<10) 0.54 ng/mL (0.00-4.00)
[2025-01-12 11:30] LABS: Folate 9.9 ng/mL (> or = 4.0); Vitamin B12 238 pg/mL (200-900)
== END 2025-01-12 06:45 | disposition home or self-care (01) ==
LOC: HO.HMGCLDS 06:44
PROVIDERS: PCP Internal Medicine; Visit Provider Physician Assistant Medical
DX: Z00.00 Encounter for general adult medical examination without abnormal findings (principal); Z12.5 Encounter for screening for malignant neoplasm of prostate; Z13.1 Encounter for screening for diabetes mellitus; Z13.21 Encounter for screening for nutritional disorder; Z13.6 Encounter for screening for cardiovascular disorders
CPT/HCPCS: 36415; 80053; 80061; 80076; 82306; 82607; 82746; 83036; 83735; 84153; 84443; 85025; 85652; 86140

== ENCOUNTER 2025-01-20 13:50 | Outpatient (AMB) | payer BC, SELFPAY ==
--- NOTE | 2025-01-20 13:49 | MHC.PC.OV ---
Vital Signs 01/20/25 13:50 Height 5 ft 10 in BP 122/59 L Blood Pressure Location Lt brachial Position Sitting Respiration 16 Pulse 53 Pulse Source Pulse Oximeter Temp 97.2 F Temp Source Temporal Artery Scan Pulse Oximetry (%) 97 Oxygen Delivery Method Room Air Intake Visit Reasons: Hand and joint pain Insulation Mechanic Required: No Accompanied by: Self / Same As Patient Allergies ibuprofen Allergy (Verified 01/20/25 17:02) Unknown Medication List - Last Reconciled 01/20/25 by Re King PA-C albuterol sulfate 90 mcg/actuation 2 inhalations inhalation Q4H PRN ascorbic acid (vitamin C) 1 g PO DAILY beclomethasone dipropionate 40 mcg/actuation (Qvar RediHaler) 1 inh inhalation BID cyclobenzaprine 10 mg PO Q8H fluticasone propionate 50 mcg/actuation 1 spray intranasal DAILY magnesium 250 mg PO DAILY meloxicam 15 mg PO DAILY prednisone 10 mg PO DAILY 2 weeks [Probiotic 1 mg PO DAILY] propranolol 10 mg PO BID [Vitamin D3 ] Tobacco use date assessed: 01/09/25 Dental Screening Dental Screen Date: 01/20/25 Did you have a dental visit in the last 12 months?: Yes Did you have a dental problem in the last 6 months where you did not have access to dental care?: No Was dental information given to patient?: Patient has dentist HPI Hand and joint pain HPI Details The patient is a 59-year-old male presenting with joint and muscle pain. The joint and muscle pain began approximately one month after starting treatment for a fungal toenail infection. The pain was severe, affecting his ability to perform basic tasks with his hands, shoulders, and neck, leading to discontinuation of the initial medication. Prednisone was prescribed, providing 90% relief initially, but symptoms returned after the course ended. The patient has a history of trigger finger, causing his hands to curl during sleep, with pain upon waking. He reports swelling in his fingers and pain radiating from his shoulders through his neck and down his arms. Blood work showed normal CBC, white blood cell count, and platelet count, with slightly elevated inflammatory markers. He tested negative for Lyme disease, with no family history of gout or lupus. The patient is actively managing his weight through [employer], losing 33 pounds, and began exercising before symptom onset. Social History - Exercise: Began exercising, including walking and light weightlifting, prior to symptom onset. - Weight Management: Actively managing weight through [employer], resulting in a 33-pound weight loss. [facility] Medical History (Updated 01/20/25 @ 17:05 by Re King PA-C) Elevated C-reactive protein (CRP) Elevated erythrocyte sedimentation rate Trigger finger Joint pain COPD (chronic obstructive pulmonary disease) Class 1 obesity with body mass index (BMI) of 32.0 to 32.9 in adult Nicotine dependence Tremor Helicobacter pylori gastritis Onychomycosis Lumbar herniated disc Degenerative disc disease Allergies Spinal stenosis Seasonal allergies GERD (gastroesophageal reflux disease) Asthma Surgical History Hx of knee surgery History of back surgery Hx of colonoscopy (~01/06/24) History of esophagogastroduodenoscopy (EGD) Family History Father Diabetes Mother No problems noted. Social History Housing: House Are you a primary palliative care nurse practitioner to a significant other at home: No Do you presently have visiting nurse or other home services: No Alcohol intake: current Alcohol intake frequency: does not drink Patient Tobacco Use Status: Former Tobacco user Tobacco use type: Cigarette Cigarettes Per Day: 10 Years Smoked: started approx 15 yrs old, 1/2 ppd, quit this past thursday service: No Current occupational status: retired Cognitive needs: No Hearing needs: No Vision needs: Yes (rx glasses) Questionnaire PHQ-9 Over the last 2 weeks, how often have you been bothered by any of the following problems? 1. Little interest or pleasure in doing things: not at all 2. Feeling down, depressed, or hopeless: not at all 3. Trouble falling or staying asleep, or sleeping too much: not at all 4. Feeling tired or having little energy: not at all 5. Poor appetite or overeating: not at all 6. Feeling bad about yourself - or that you are a failure or have let yourself or your family down: not at all 7. Trouble concentrating on things, such as reading the newspaper or watching television: not at all 8. Moving or speaking so slowly that other people could have noticed. Or the opposite - being so fidgety or restless that you have been moving around a lot more than usual: not at all 9. Thoughts that you would be better off or of hurting yourself in some way: not at all Total score: 0 Depression Screening Interpretation: Negative Depression Screening Done: Yes 86663 - PHQ-9 Billing: Yes Source: Developed by Drs. Garrison Durand, Lupis Bailey, Charles Link and colleagues, with an educational alise from [employer]. Thrive Questionnaire Date Thrive assessed: 01/20/25 I am a: Patient What is your living situation today?: I have a steady place to live Within the past 12 months, did the food you bought not last and you didn't have the money to get more?: Never true Within the past 12 months, did you worry whether your food would run out before you got money to buy more?: Never true Do you have trouble paying for medicines?: No Do you have trouble getting transportation to medical appointments?: No Do you have trouble paying your heating and electricity bill?: No Do you have trouble taking care of your child, family member or friend?: No Do you have trouble with day-to-day activities such as bathing, preparing meals, shopping, managing finances, etc.?: No Are you currently unemployed and looking for a job?: No Are you interested in more education?: No Please select the resources that you would like help with: None THRIVE Score: 0 AUDIT C Alcohol Use Questionnaire (AUDIT-C) 1. How often do you have a drink containing alcohol?: Never 3. How often do you have six or more drinks on one occasion?: Never Total Score: 0 Score Reviewed/Action Taken: Yes LYSSA-7 AMB Questionnaire LYSSA-7 Date LYSSA - 7 assessed: 01/20/25 Feeling nervous, anxious, or on edge: 0 = Not at all Not being able to stop or control worryin = Not at all Worrying too much about different things: 0 = Not at all Trouble relaxin = Not at all Being so restless that it is hard to sit still: 0 = Not at all Becoming easily annoyed or irritable: 0 = Not at all Feeling afraid as if something awful might happen: 0 = Not at all Total LYSSA-7 score (0-4 normal; 5-9 mild; 10-14 moderate; 15-21 severe): 0 Source: Developed by Drs. Garrison Durand, Lupis Bailey, Charles Link and colleagues, with an educational alise from [employer]. LYSSA-7 Assessment Billing LYSSA-7 Assessment Tool: LYSSA-7 Assessment 55191 Review of Systems Const Details: - Musculoskeletal: Reports joint pain, muscle pain, and swelling in fingers. Denies any prior similar symptoms before medication. - Neurological: Reports trigger finger causing hands to curl during sleep, with pain upon waking. - General: Reports significant relief with prednisone initially, but symptoms returned post-treatment. All systems reviewed & are unremarkable except as noted in HPI and below Physical exam (Primary Care) Vital Signs: Last Vital Signs Temp 97.2 F 01/20/25 13:50 Pulse 53 01/20/25 13:50 Resp 16 01/20/25 13:50 BP 122/59 L 01/20/25 13:50 Pulse Ox 97 01/20/25 13:50 Oxygen Delivery Method Room Air 01/20/25 13:50 Care Plan Goal for BP management: <140/90 at Goal BMI Assessment/Plan discussion: High BMI High, discussed plan: lifestyle, weight reduction, dietary, physical activity, alcohol moderation and other Tobacco/Smoking Status: Tobacco use Status Tobacco use date assessed 01/09/25 01/20/25 13:59 Patient Tobacco Use Status Former Tobacco user 01/20/25 13:59 Tobacco use type Cigarette 01/20/25 13:59 PHQ-9: PHQ-9 Score PHQ-9: Total score 0 01/20/25 13:59 Depression Screening Interpretation: Negative Thrive Assessment: Date of Thrive Assessment Date Thrive assessed 01/20/25 01/20/25 13:59 Const Other: Appearance: Alert. Oriented X3. No acute distress. Head: Normal external exam. Normocephalic. Atraumatic. Eyes: Pupils are equal, round, and reactive to light. Extraocular movements intact. Conjunctiva and sclera normal. Eyelids normal. Throat: Pharynx normal. Uvula midline. Moist mucous membranes. Neck: Normal inspection. Neck supple. Full range of motion. Cardiovascular: Normal heart rate and rhythm. Respiratory: No respiratory distress. Painless inspiration. Back: Full range of motion noted. Skin: Skin warm and dry. Normal skin color. Normal skin turgor. No rashes/lesions/lacerations noted. Extremities: Extremities exhibit normal range of motion. Results Reviewed Results Reviewed: - Labs: CBC normal, white blood cell count normal, platelet count normal, inflammatory markers slightly elevated. - Tests: Negative for Lyme disease. Coding Level of Care Code Est Pt Level 4 (71649) Complex EM visit Add On G2211 Diagnoses Onychomycosis B35.1 Joint pain M25.50 Trigger finger M65.30 Elevated erythrocyte sedimentation rate R70.0 Elevated C-reactive protein (CRP) R79.82 Additional Codes LYSSA-7 Assessment Billing - LYSSA-7 Assessment Tool: LYSSA-7 Assessment 97205 ([id number]) PHQ-9 - 93439 - PHQ-9 Billing: Yes ([id number]) Assessment & Plan Assessment & Plan (1) Onychomycosis: Code(s): B35.1 - Tinea unguium Category: Medical Plan: The patient was initially treated for a fungal toenail infection, which led to joint and muscle pain as side effects of the medication. The treatment was discontinued due to these adverse effects, and the patient was subsequently prescribed prednisone, which provided temporary relief. (2) Joint pain: Code(s): M25.50 - Pain in unspecified joint Category: Medical Plan: The joint and muscle pain began after starting treatment for a fungal toenail infection, with symptoms including severe pain in the hands, shoulders, and neck. Prednisone provided initial relief, but symptoms returned after the course ended. The plan includes a low dose of prednisone for two weeks, followed by a reassessment of symptoms. (3) Trigger finger: Code(s): M65.30 - Trigger finger, unspecified finger Category: Medical Plan: The patient experiences trigger finger, causing his hands to curl during sleep and pain upon waking. Management includes monitoring symptoms and considering further interventions if necessary. (4) Elevated erythrocyte sedimentation rate: Code(s): R70.0 - Elevated erythrocyte sedimentation rate Category: Medical Plan: The patient's blood work showed slightly elevated inflammatory markers, with normal CBC, white blood cell count, and platelet count. Further evaluation includes testing for rheumatoid factors and lupus, with a referral to rheumatology if necessary. (5) Elevated C-reactive protein (CRP): Code(s): R79.82 - Elevated C-reactive protein (CRP) Category: Medical Plan: The patient's blood work showed slightly elevated inflammatory markers, with normal CBC, white blood cell count, and platelet count. Further evaluation includes testing for rheumatoid factors and lupus, with a referral to rheumatology if necessary. Plan Plan Patient was informed and verbally consented to the use of an ambient scribe for clinic note documentation during this visit. 1. Fungal Toenail Infection The patient was initially treated for a fungal toenail infection, which led to joint and muscle pain as side effects of the medication. The treatment was discontinued due to these adverse effects, and the patient was subsequently prescribed prednisone, which provided temporary relief. 2. Joint And Muscle Pain The joint and muscle pain began after starting treatment for a fungal toenail infection, with symptoms including severe pain in the hands, shoulders, and neck. Prednisone provided initial relief, but symptoms returned after the course ended. The plan includes a low dose of prednisone for two weeks, followed by a reassessment of symptoms. 3. Trigger Finger The patient experiences trigger finger, causing his hands to curl during sleep and pain upon waking. Management includes monitoring symptoms and considering further interventions if necessary. 4. Elevated Inflammatory Markers The patient's blood work showed slightly elevated inflammatory markers, with normal CBC, white blood cell count, and platelet count. Further evaluation includes testing for rheumatoid factors and lupus, with a referral to rheumatology if necessary. During the visit, we discussed the patient's joint and muscle pain, which began after treatment for a fungal toenail infection. The patient was advised to take a low dose of prednisone for two weeks to manage symptoms, with a follow-up planned to reassess the condition. We also discussed the possibility of further testing for rheumatoid factors and lupus, and a referral to rheumatology if necessary. 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 Complement C4 17 Days D80.1 - Nonfamilial hypogammaglobulinemia Anti DNA DS Antibody Today R76.89 - Other specified abnormal immunological findings in serum Sjogren's Antibodies Today M25.50 - Pain in unspecified joint Scleroderma 12 Panel Today M25.50 - Pain in unspecified joint Immunoglobulins,IgG IgA IgM 17 Days D80.1 - Nonfamilial hypogammaglobulinemia CHRISTIAN Reflex Titer and Pattern Today M25.50 - Pain in unspecified joint Rheumatoid Factor Today M25.50 - Pain in unspecified joint Creatine Kinase Total Today M25.50 - Pain in unspecified joint 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 - Continue with current weight management and exercise routine. - Schedule a follow-up appointment in one month to reassess symptoms. - Contact the clinic if symptoms worsen before the scheduled follow-up.
[2025-01-20 13:50] VITALS: BP 122/59; PULSE 53; RESP 16; TEMP 36.2; O2SAT 97
== END 2025-01-20 14:18 | disposition home or self-care (01) ==
LOC: HO.HMCSH 13:50
PROVIDERS: PCP Internal Medicine; Visit Provider Physician Assistant Medical
DX: B35.1 Tinea unguium (principal); M25.50 Pain in unspecified joint; M65.30 Trigger finger, unspecified finger; R70.0 Elevated erythrocyte sedimentation rate; R79.82 Elevated C-reactive protein (CRP)

== ENCOUNTER 2025-01-20 13:50 | Outpatient (REF) | payer BC, SELFPAY ==
[2025-01-23 20:59] LABS: Thyroglobulin 0.8 ng/mL
[2025-01-24 17:28] LABS: Antibody to SS-A Antigen <1.0 NEG AI (<1.0 NEG); Antibody to SS-B Antigen <1.0 NEG AI (<1.0 NEG); SM/Ribonucleoprotein Ab <1.0 NEG AI (<1.0 NEG); Smith Protein <1.0 NEG AI (<1.0 NEG)
[2025-01-25 11:48] LABS: Anti Nuclear Antibody Screen NEGATIVE (NEGATIVE)
[2025-01-30 00:38] LABS: Centromere Protein A Ab <11 SI (<11); Centromere Protein B Ab <11 SI (<11); Fibrillarin Ab <11 SI (<11); PM SCL 100 Ab <11 SI (<11); PM SCL 75 Ab <11 SI (<11); RNA Polymerase III RP11 Ab <11 SI (<11); RNA Polymerase III RP155 Ab <11 SI (<11); SCL-70 Extractable Nuclear Ab <11 SI (<11); Th-To Ab <11 SI (<11); U1 SNRNP RNP 70KD <11 SI (<11); U1 SNRNP RNP A <11 SI (<11); U1 SNRNP RNP C <11 SI (<11)
== END 2025-01-20 13:51 | disposition home or self-care (01) ==
LOC: HO.HMGCLDS 13:50
PROVIDERS: PCP Internal Medicine; Visit Provider Physician Assistant Medical
DX: R76.89 Other specified abnormal immunological findings in serum (principal); M25.50 Pain in unspecified joint; B35.1 Tinea unguium; M65.30 Trigger finger, unspecified finger; R70.0 Elevated erythrocyte sedimentation rate; R79.82 Elevated C-reactive protein (CRP)
CPT/HCPCS: 36415; 82550; 84182; 84432; 86038; 86039; 86225; 86235; 86431; 96127

== ENCOUNTER 2025-02-28 10:04 | Outpatient (AMB) | payer BC, SELFPAY ==
[2025-02-28 10:05] VITALS: BP 106/78; PULSE 61; O2SAT 97; BMI 27.6
--- NOTE | 2025-02-28 10:05 | MHC.OFFVIS ---
Vital Signs 02/28/25 10:05 Height 5 ft 10 in Weight 192 lb 8 oz BMI 27.6 BP 106/78 Blood Pressure Location Rt brachial Position Sitting Pulse 61 Pulse Source Pulse Oximeter Pulse Oximetry (%) 97 Oxygen Delivery Method Room Air Intake Visit Reasons: asthma Allergies ibuprofen Allergy (Verified 02/28/25 14:32) Unknown HPI HPI asthma: Details: Grant is a pleasant 60 year old, former 20 pack year smoker, quit approximately 1 year ago with underlying asthma, moderate COPD, environmental allergies, and GERD. Patient has been well controlled on QVAR, using Albuterol MDI infrequently. He currently denies any respiratory symptoms. He denies any visits to urgent care or hospitalizations related to respiratory distress. Today he presents for routine visit. [facility] Medical History (Updated 02/28/25 @ 14:59 by Re King PA-C) Tremor of both hands Elevated C-reactive protein (CRP) Elevated erythrocyte sedimentation rate Trigger finger Joint pain COPD (chronic obstructive pulmonary disease) Class 1 obesity with body mass index (BMI) of 32.0 to 32.9 in adult Nicotine dependence Tremor Helicobacter pylori gastritis Onychomycosis Lumbar herniated disc Degenerative disc disease Allergies Spinal stenosis Seasonal allergies GERD (gastroesophageal reflux disease) Asthma Surgical History Hx of knee surgery History of back surgery Hx of colonoscopy (~01/06/24) History of esophagogastroduodenoscopy (EGD) Family History Father Diabetes Mother No problems noted. Social History Housing: House Are you a primary healthcare receptionist to a significant other at home: No Do you presently have visiting nurse or other home services: No Alcohol intake: current Alcohol intake frequency: does not drink Patient Tobacco Use Status: Former Tobacco user Tobacco use type: Cigarette Cigarettes Per Day: 10 Years Smoked: started approx 15 yrs old, 1/2 ppd, quit this past thursday service: No Current occupational status: retired Cognitive needs: No Hearing needs: No Vision needs: Yes (rx glasses) Review of Systems Const Denies excessive sweating, Denies fever(s), Denies headache(s) and Denies night sweats Eyes Denies dry eyes, Denies irritation and Denies itchy eyes ENT Reports Normal hearing present, Denies headache(s), Denies nasal congestion, Denies nasal discharge, Denies post nasal drip and Denies sore throat Card Denies chest pain, Denies chest pain at rest, Denies chest pain with activity, Denies claudication, Denies leg edema, Denies orthopnea and Denies paroxysmal nocturnal dyspnea Resp Denies excessive phlegm production, Denies pain on inspiration, Denies pain with cough and Denies stridor Neuro Reports Normal hearing present and Denies headache(s) Endo Denies excessive sweating Bernardo/Lymph Denies lymphadenopathy Aller/Immun Denies itchy eyes and Denies seasonal rhinorrhea Physical Exam Vital Signs: Last Vital Signs Pulse 61 02/28/25 10:05 BP 106/78 02/28/25 10:05 Pulse Ox 97 02/28/25 10:05 Oxygen Delivery Method Room Air 02/28/25 10:05 BMI result Body Mass Index 27.6 Const General: cooperative, healthy appearing, comfortable, no acute distress, well developed and alert Orientation/consciousness: patient oriented x3 Limitations: no limitations HEENT Head: Yes normal to inspection, Yes normocephalic and Yes atraumatic Ears: hearing grossly normal bilaterally and external ears normal Eyes General: appearance normal, both eyes and all related structures Eyelids: Yes eyelids normal Sclerae: sclerae normal EOM: EOMs intact bilaterally Neck Neck: Yes normal visual inspection and Yes no lymphadenopathy Lymphatic: no lymphadenopathy noted Chest Chest palpation & inspection: normal inspection of the chest Resp Effort & Inspection: normal respiratory effort, able to speak in complete sentences, no audible wheezes, no cough, no stridor, not tachypneic, no tripod positioning and no use of accessory muscles Auscultation: clear to auscultation bilaterally Cardio Jugular venous distension: no JVD Rate: regular rate Rhythm: regular rhythm Skin Other: warm, dry General skin exam: no rashes or lesions noted Neuro General: patient oriented x3 Cranial nerves: Yes Normal hearing present Cognition (Neuro): normal cognition Gait exam (Neuro): Normal gait present Extrem General: Yes normal to inspection, Yes capillary refill normal, Yes no clubbing, cyanosis or edema and Yes no pedal edema Psych Appearance: grossly normal and well kempt Speech and movement: Normal speech and movement present and Clear speech present Affect: normal affect Attitude: cooperative Thought process: Normal thought process present Thought content: Normal thought content present Insight: Good insight present (Psych) Judgement: Good judgement present (Psych) Assessment & Plan Assessment & Plan (1) Asthma: Code(s): J45.909 - Unspecified asthma, uncomplicated Category: Medical (2) COPD (chronic obstructive pulmonary disease): Code(s): J44.9 - Chronic obstructive pulmonary disease, unspecified Category: Medical (3) Personal history of tobacco use: Code(s): Z87.891 - Personal history of nicotine dependence Category: Social Hx Plan At this time, patient reports excellent control of respiratory symptoms on current regimen, advised to continue QVAR and albuterol MDI PRN. He is aware to call if symptoms become less controlled. Discussed LDCT with 20+ smoking history, which he was agreeable to schedule today. Will enter referral to lung screening program. All questions were answered and patient is in agreement of plan. Will follow up in 6 months or sooner if needed. Orders: Referrals Lung Cancer Screening Referral Z87.891 - Personal history of nicotine dependence Coding Level of Care Code Est Pt Level 4 (27229) Diagnoses Asthma J45.909 COPD (chronic obstructive pulmonary disease) J44.9 Personal history of tobacco use Z87.891
== END 2025-02-28 10:25 | disposition home or self-care (01) ==
PROVIDERS: PCP Internal Medicine; Visit Provider Nurse Practitioner Family
DX: J45.909 Unspecified asthma, uncomplicated (principal); J44.9 Chronic obstructive pulmonary disease, unspecified; Z87.891 Personal history of nicotine dependence
CPT/HCPCS: 99214

== ENCOUNTER → 2025-02-28 10:04 | Outpatient (BNVA) | payer BC, SELFPAY | PROVIDERS: PCP Internal Medicine; Visit Provider Physician Assistant Medical | DX: M25.50 Pain in unspecified joint (principal); R25.1 Tremor, unspecified; R03.0 Elevated blood-pressure reading, without diagnosis of hypertension; J44.89 Other specified chronic obstructive pulmonary disease; Z87.891 Personal history of nicotine dependence; Z28.21 Immunization not carried out because of patient refusal; Z13.31 Encounter for screening for depression | CPT/HCPCS: 90471; 96127 ==

== ENCOUNTER 2025-02-28 14:24 | Outpatient (AMB) | payer BC, SELFPAY ==
--- OUTSIDE RECORDS SUMMARY | 2024-01-06 06:30 | XMS_ITS ---
Author Organization [facility] Address [address] [place] [id number] Care Team Providers Care Photo Journalist Name Role Phone Petrona (RETIRED) Garrison CLINE Primary Care Provid er Unavailable Garrison Banerjee Unavailable [phone] REASON FOR VISIT screening,hx polyps Problems Problem Type SNOMED Code ICD Code Onset Dates Problem Status W/U Status Risk Notes Problem Diverticular disease of colon ([id number]) Diverticulosis of large intestine without perforation or abscess without bleeding (K57.30) Active confirmed Encounters Encounter Location Date Provider Diagnosis [facility] Outpatient [address] [place] [phone] 01/06/2024 Garrison Banerjee Colon cancer scree irma Z12.11 ; Colon polyps K63.5 ; Ulcer of intestine K63.3 ; Diverticulosis of large intestine without perforation or abscess without bleeding K57.30 and Other hemorrhoids K64.8 Assessments Encounter Date Diagnosis (ICD Code) Assessment Notes Treatment Notes Treatment Clinical Notes Section Notes 01/06/2024 Colon cancer screening (ICD-10 - Z12.11) 01/06/2024 Colon polyps (ICD-10 - K63.5) 01/06/2024 Ulcer of intestine (ICD-10 - K63.3) 01/06/2024 Diverticulosis of large intestine without perforation or abscess without bleeding (ICD-10 - K57.30) 01/06/2024 Other hemorrhoids (ICD-10 - K64.8) Plan Of Treatment No Information Progress Notes * CASEY JACKSONDOB:[birth year] (60 yo M)Acc No.[id number]:01/06/2024 COLON WITH MAC Patient: CASEY ADAMS Provider: Joshua Banerjee MD :1965 A ge:58 Y S ex:Male Date:01/06/2024 Address:[address] [place] [address], [place], [id number] Pcp:Garrison Russ (RETIRE D), DO Subjective: * Chief Complaints: * S creening,hx polyps Assessment: * Assessment: 1. C olon cancer screening - Z12.11 (Primary) 2 . C olon polyps - K63.5? 3. U lcer of intestine - K63.3 4 . D iverticulosis of large intestine without perforation or abscess without bleeding - K57.30 5 . O ther hemorrhoids - K64.8 Plan: * Procedure Codes: 4 5385 LESION REMOVAL COLONOSCOPY, Modifiers: [place] [address]704 COLONOSCOPY AND BIOPSY, Modifiers: 59 , PT Billing Information: * Procedure Codes: 72824 LESION REMOVAL [place]OS[place] [address] COLONOSCOPY AND BIOPSY. Modifiers: 59, PT * The named appointment provid er may or may not be the originator of this progress note, and it is not deemed complete until electronically signed by the appointment provider. Sign off status: Pending * Provider: Joshua Banerjee MD Date: 0 01/06/2024 Generated for Alee peralta/Luci/Connieitting on: 1 05/01/2024 11:22 AM EST
--- NOTE | 2025-02-28 14:26 | A.OFFPC_ITS ---
Vital Signs 02/28/25 14:34 02/28/25 16:38 Height 5 ft 10 in Weight 194 lb 0.2 oz BMI 27.8 BP 142/69 H 138/73 Blood Pressure Location Lt brachial Position Sitting Pulse 64 Pulse Source Pulse Oximeter Temp 97.2 F Pulse Oximetry (%) 97 Intake Visit Reasons: 1 Month f/u Intake Note: Having side affects from medication from podiatry Allergies ibuprofen Allergy (Verified 02/28/25 16:38) Unknown Medication List - Last Reconciled 02/28/25 by Re King PA-C albuterol sulfate 90 mcg/actuation 2 inhalations inhalation Q4H PRN ascorbic acid (vitamin C) 1 g PO DAILY beclomethasone dipropionate 40 mcg/actuation (Qvar RediHaler) 1 inh inhalation BID cyclobenzaprine 10 mg PO Q8H fluticasone propionate 50 mcg/actuation 1 spray intranasal DAILY magnesium 250 mg PO DAILY meloxicam 15 mg PO DAILY prednisone 10 mg PO DAILY 7 days [Probiotic 1 mg PO DAILY] propranolol 10 mg PO BID [Vitamin D3 ] Tobacco use date assessed: 01/09/25 Dental Screening Dental Screen Date: 02/28/25 Did you have a dental visit in the last 12 months?: Yes Did you have a dental problem in the last 6 months where you did not have access to dental care?: No Was dental information given to patient?: Patient has dentist HPI HPI Comments History of Present Illness Details History of Present Illness The patient is a 60-year-old male presenting for a follow-up visit for joint pains. His symptoms began after he was treated with terbinafine for onychomycosis, as prescribed by his twister in. He reports muscle aches and pain originating from the center of his neck and radiating down his shoulders, as well as pain in the back of his legs to the knees, similar to sciatica. This pain has significantly impacted his mobility, making it difficult for him to bend down or get up from the floor without assistance. Initial treatment with a course of prednisone from his twister in resulted in 95% improvement. A subsequent low-dose 10-day course of prednisone also provided 95% relief. However, his symptoms started to return about a week after completing the last dose of prednisone and are now fully back. Prior blood work for these symptoms revealed slightly elevated inflammatory markers, but tests for lupus and rheumatoid arthritis, including an CHRISTIAN screen, were negative. The patient also has a history of hand tremors for approximately four years, for which he was prescribed propranolol by a previous physician without a comprehensive workup. The tremors persist despite taking the medication and are particularly noticeable during fine motor tasks. He has no known family history of tremors. Social History - Employment: The patient is a retired [employer]. - Functional Status: He reports being pr eviously active and able to play on the floor with his two grandchildren but now requires help to get up due to pain and weakness. [facility] Medical History (Updated 02/28/25 @ 16:41 by Re King PA-C) Elevated blood pressure reading Tremor of both hands Elevated C-reactive protein (CRP) Elevated erythrocyte sedimentation rate Trigger finger Joint pain COPD (chronic obstructive pulmonary disease) Class 1 obesity with body mass index (BMI) of 32.0 to 32.9 in adult Nicotine dependence Tremor Helicobacter pylori gastritis Onychomycosis Lumbar herniated disc Degenerative disc disease Allergies Spinal stenosis Seasonal allergies GERD (gastroesophageal reflux disease) Asthma Surgical History Hx of knee surgery History of back surgery Hx of colonoscopy (~01/06/24) History of esophagogastroduodenoscopy (EGD) Family History Father Diabetes Mother No problems noted. Social History Housing: House Are you a primary health care facilities inspector to a significant other at home: No Do you presently have visiting nurse or other home services: No Alcohol intake: current Alcohol intake frequency: does not drink Patient Tobacco Use Status: Former Tobacco user Tobacco use type: Cigarette Cigarettes Per Day: 10 Years Smoked: started approx 15 yrs old, 1/2 ppd, quit this past thursday service: No Current occupational status: retired Cognitive needs: No Hearing needs: No Vision needs: Yes (rx glasses) Questionnaire PHQ-9 Over the last 2 weeks, how often have you been bothered by any of the following problems? 1. Little interest or pleasure in doing things: not at all 2. Feeling down, depressed, or hopeless: not at all 3. Trouble falling or staying asleep, or sleeping too much: not at all 4. Feeling tired or having little energy: not at all 5. Poor appetite or overeating: not at all 6. Feeling bad about yourself - or that you are a failure or have let yourself or your family down: not at all 7. Trouble concentrating on things, such as reading the newspaper or watching television: not at all 8. Moving or speaking so slowly that other people could have noticed. Or the opposite - being so fidgety or restless that you have been moving around a lot more than usual: not at all 9. Thoughts that you would be better off or of hurting yourself in some way: not at all Total score: 0 Depression Screening Interpretation: Negative Depression Screening Done: Yes 91711 - PHQ-9 Billing: Yes Source: Developed by Drs. Garrison Durand, Lupis Bailey, Charles Link and colleagues, with an educational alise from [employer]. Thrive Questionnaire Date Thrive assessed: 01/20/25 I am a: Patient What is your living situation today?: I have a steady place to live Within the past 12 months, did the food you bought not last and you didn't have the money to get more?: Never true Within the past 12 months, did you worry whether your food would run out before you got money to buy more?: Never true Do you have trouble paying for medicines?: No Do you have trouble getting transportation to medical appointments?: No Do you have trouble paying your heating and electricity bill?: No Do you have trouble taking care of your child, family member or friend?: No Do you have trouble with day-to-day activities such as bathing, preparing meals, shopping, managing finances, etc.?: No Are you currently unemployed and looking for a job?: No Are you interested in more education?: No Please select the resources that you would like help with: None THRIVE Score: 0 AUDIT C Alcohol Use Questionnaire (AUDIT-C) 1. How often do you have a drink containing alcohol?: Never 3. How often do you have six or more drinks on one occasion?: Never Total Score: 0 Score Reviewed/Action Taken: Yes LYSSA-7 AMB Questionnaire LYSSA-7 Date LYSSA - 7 assessed: 01/20/25 Feeling nervous, anxious, or on edge: 0 = Not at all Not being able to stop or control worryin = Not at all Worrying too much about different things: 0 = Not at all Trouble relaxin = Not at all Being so restless that it is hard to sit still: 0 = Not at all Becoming easily annoyed or irritable: 0 = Not at all Feeling afraid as if something awful might happen: 0 = Not at all Total LYSSA-7 score (0-4 normal; 5-9 mild; 10-14 moderate; 15-21 severe): 0 Source: Developed by Drs. Garrison Durand, Lupis Bailey, Charles Link and colleagues, with an educational alise from [employer]. LYSSA-7 Assessment Billing LYSSA-7 Assessment Tool: LYSSA-7 Assessment 18385 Review of Systems Narrative Review of Systems - Musculoskeletal: Reports diffuse muscle aches and joint pain, which are now as severe as before treatment. - The pain is located in the neck, shoulders, and back of the legs to the knees. - Reports associated weakness and difficulty with mobility, such as getting up from the floor. - Neurological: Reports persistent hand tremors, especially with fine motor tasks, despite being on propranolol. - Cardiovascular: Denies a history of high blood pressure; patient states his blood pressure is usually low. Const All systems reviewed & are unremarkable except as noted in HPI and below Physical exam (Primary Care) Vital Signs: Last Vital Signs Temp 97.2 F 02/28/25 14:34 Pulse 64 02/28/25 14:34 BP 142/69 H 02/28/25 14:34 Pulse Ox 97 02/28/25 14:34 Care Plan Goal for BP management: <140/90 at Goal BMI result Body Mass Index 27.8 BMI Assessment/Plan discussion: High BMI High, discussed plan: lifestyle, weight reduction, dietary, physical activity, alcohol moderation and other Tobacco/Smoking Status: Tobacco use Status Tobacco use date assessed 01/09/25 02/28/25 14:28 Patient Tobacco Use Status Former Tobacco user 02/28/25 14:28 Tobacco use type Cigarette 02/28/25 14:28 PHQ-9: PHQ-9 Score PHQ-9: Total score 0 02/28/25 14:28 Depression Screening Interpretation: Negative Thrive Assessment: Date of Thrive Assessment Date Thrive assessed 01/20/25 02/28/25 14:28 Narrative Physical Exam Appearance: Alert. Oriented X3. No acute distress. Head: Normal external exam. Normocephalic. Atraumatic. Eyes: Pupils are equal, round, and reactive to light. Extraocular movements intact. Conjunctiva and sclera normal. Eyelids normal. Throat: Pharynx normal. Uvula midline. Moist mucous membranes. Neck: Normal inspection. Neck supple. Full range of motion. Cardiovascular: Normal heart rate and rhythm. Heart sound normal. No murmurs noted. Pulses normal throughout. Respiratory: No respiratory distress. Painless inspiration. Breath sounds normal. No wheezes/rales/rhonchi noted. Chest nontender. No accessory muscle usage noted or decreased air movement noted. Back: Full range of motion noted. Skin: Skin warm and dry. Normal skin color. Normal skin turgor. No rashes/lesions/lacerations noted. Extremities: No lower extremity edema. Extremities exhibit normal range of motion. Neuro: Oriented X 3. No motor deficit. No sensory deficit. Reflexes normal. Office Procedures Flu Questionnaire Does the patient have a severe egg allergy?: No Does the patient have severe life threatening allergies?: No Does the patient have a fever or illness today?: No Has the patient ever had Guillain-[place] Syndrome?: No Has the patient ever had any past reaction to a flu shot?: No Immunizations Fluarix [id number] (PF) 45 mcg (15 mcg x 3)/0.5 mL IM syringe Performing Provider: Re King PA-C Performing Location: [facility] [place] [facility] Documented (not given) by: Summer Pulliam on 02/28/25 14:34 Dose Route Admin Location Dispensed Lot Number Expiration Date [employer] 0.5 mL IM mL VIS Given Date VIS Provided VIS Publication Date 02/28/25 Single Vaccine 24 Eligibility Eligibility Date Funding Source Results Reviewed Results Reviewed: Results - Labs: Previous laboratory studies showed slightly elevated inflammatory markers. - CHRISTIAN screen for lupus and rheumatoid arthritis was negative. Coding Level of Care Code Est Pt Level 4 (70094) Complex EM visit Add On G2211 Diagnoses Joint pain M25.50 Tremor of both hands R25.1 Elevated blood pressure reading R03.0 Additional Codes LYSSA-7 Assessment Billing - LYSSA-7 Assessment Tool: LYSSA-7 Assessment 81535 ([id number]) PHQ-9 - 24902 - PHQ-9 Billing: Yes ([id number]) Assessment & Plan Assessment & Plan (1) Joint pain: Code(s): M25.50 - Pain in unspecified joint Category: Medical Plan: The patient's widespread joint and muscle pain is thought to be a persistent side effect from a prior course of terbinafine, which has not resolved after discontinuing the medication. A drug-induced lupus-like syndrome is a possibility, though prior autoimmune workup was negative. Given the severity of symptoms and lack of resolution, a referral will be made to Rheumatology for further evaluation, and efforts will be made to expedite the appointment. In the interim, the patient will be started on a short course of low-dose prednisone 5 mg daily for one week. A refill for meloxicam will be provided, and a prescription for cyclobenzaprine will be sent for as-needed use for muscle relaxation. (2) Tremor of both hands: Code(s): R25.1 - Tremor, unspecified Category: Medical Plan: The patient reports a multi-year history of hand tremors, currently treated with propranolol prescribed by a previous physician without a definitive diagnosis or workup. To determine the underlying etiology and ensure appropriate management, a referral will be made to Neurology for further evaluation to rule out conditions such as Parkinson's disease. The patient is advised to continue taking propranolol pending the neurology consultation. (3) Elevated blood pressure reading: Code(s): R03.0 - Elevated blood-pressure reading, without diagnosis of hypertension Category: Medical Plan: The patient reports a multi-year history of hand tremors, currently treated with propranolol prescribed by a previous physician without a definitive diagnosis or workup. To determine the underlying etiology and ensure appropriate management, a referral will be made to Neurology for further evaluation to rule out conditions such as Parkinson's disease. The patient is advised to continue taking propranolol pending the neurology consultation. Plan Plan Patient was informed and verbally consented to the use of an ambient scribe for clinic note documentation during this visit. 1. Arthralgia And Myalgia The patient's widespread joint and muscle pain is thought to be a persistent side effect from a prior course of terbinafine, which has not resolved after discontinuing the medication. A drug-induced lupus-like syndrome is a possibility, though prior autoimmune workup was negative. Given the severity of symptoms and lack of resolution, a referral will be made to Rheumatology for further evaluation, and efforts will be made to expedite the appointment. In the interim, the patient will be started on a short course of low-dose prednisone 5 mg daily for one week. A refill for meloxicam will be provided, and a prescription for cyclobenzaprine will be sent for as-needed use for muscle relaxation. 2. Essential Tremor The patient reports a multi-year history of hand tremors, currently treated with propranolol prescribed by a previous physician without a definitive diagnosis or workup. To determine the underlying etiology and ensure appropriate management, a referral will be made to Neurology for further evaluation to rule out conditions such as Parkinson's disease. The patient is advised to continue taking propranolol pending the neurology consultation. 3. Elevated Blood Pressure Reading The patient had an elevated blood pressure reading in the office, but he reports a history of low blood pressure. The finding may be attributable to anxiety or tension during the visit. The plan is to monitor and re-evaluate at the follow- up visit in two to three months. Discussion Notes I informed the patient that his joint and muscle pain is likely a persistent gurjit e effect of the terbinafine he took. I explained that while this is unusual to last this long, we need a specialist's opinion. I advised him that I would refer him to Rheumatology and personally contact the department to try and secure a sooner appointment, as the current wait time is unacceptably long. We discussed restarting prednisone at a very low dose for only one week due to the risks of long-term use. Regarding his hand tremors, I explained the importance of a formal diagnosis and that simply treating the symptom with a medication like propranolol without a full workup is not ideal. Therefore, I will be referring him to Neurology for further evaluation. We discussed the medication plan, including continuing meloxicam and adding a muscle relaxer as needed. The plan is to follow up in two to three months, but he should contact us sooner if needed. Orders: Orders Influenza [id number] Immunization Today Z23 - Encounter for immunization Referrals Neurology Referral R25.1 - Tremor, unspecified Medications: New Fluarix (PF) (flu vac ts (6mos up)-PF) 0.5 mL IM ONCE 0.5 mL 0RF NS Z23 - Encounter for immunization prednisone 10 mg PO DAILY 7 tabs 0RF 7 days Refilled meloxicam 15 mg PO DAILY 90 tabs 3RF cyclobenzaprine 10 mg PO Q8H 90 tabs 3RF Patient Instructions: Patient Instructions - We are referring you to a joint specialist (Rheumatology) and will try to get you an appointment sooner than the one you were given. - We are also referring you to a clinical lab specialist (Neurology) to figure out the cause of your hand tremors. Please continue taking your propranolol until you see them. - Take prednisone 5mg by mouth once daily for the next 7 days only. - We have sent a refill for your meloxicam. Continue to take this medication every day. - We have sent a prescription for a muscle relaxer (cyclobenzaprine). You can take this as needed for muscle pain, especially at night. Do not drive, drink alcohol, or operate machinery after taking this medication. - You can take prednisone, meloxicam, and the muscle relaxer together if needed. - Please schedule a follow-up appointment in 2 to 3 months, or call us sooner if your symptoms worsen or if you have any questions.
[2025-02-28 14:34] VITALS: BP 142/69; PULSE 64; TEMP 36.2; O2SAT 97; BMI 27.8
[2025-02-28 16:38] VITALS: BP 138/73
--- OUTSIDE RECORDS SUMMARY | 2025-03-01 11:24 | XMS_ITS | Patient Health Record ---
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 Oral; Duration: 90 Tremor Active Fluticasone Propionate 50 MCG/ACT Suspension Nasal; Duration: 90 Ac tive Vitamin D Active Probiotic Active Qvar RediHaler 40 MCG/ACT Aerosol Breath Activated 1 puff Inhalation Twice a day Active Immunizations Vaccine Route Administration Date Status Comme nts Influenza Unknown 06/25/2021 Refused Social History Tobacco Use: Social History Observation Description Date Details (start date - stop date) Current Smoker NA - NA Social History Tobacco Use: Social Info Question Answer Notes Tobacco Use/Smoking Patient is a current smoker How often do you smoke cigarettes? every day How many cigarettes a day do you smoke? 6-10 How soon after you wake up do you smoke your first cigarette? 6-30 minutes Are you interested in quitting? Thinking about quitting Additional Details Category Social Info Options Details Miscellaneous: Marital status: Occupation: [employer]--24 years/retired 04/2020 Section Notes: Smokes 1/2 ppd; no sig alcoh ol Smokes 1/2 ppd; no sig alcoh ol Smokes 1/2 ppd; no sig alcoh ol Smokes 1/2 ppd; no sig alcoh ol Problems Problem Type SNOMED Code ICD Code Onset Dates Problem Status W/U Status Risk Notes Problem Screening for malignant neoplasm of colon (695661366) Encounter for screening for malignant neoplasm of colon (Z12.11) Active confirmed Problem History of adenomatous polyp of colon (100704750) History of adenomatous polyp of colon (Z86.010) Active confirmed Problem Abdominal bloating (659328764) Abdominal bloating (R14.0) Active confirmed Problem Gastroduodenitis (881847270) Gastritis, unspecified, without bleeding (K29.70) Active confirmed Problem Diverticular disease of colon (823707194) Diverticulosis of large intestine without perforation or abscess without bleeding (K57.30) Active confirmed Problem Screening for malignant neoplasm of rectum (892074136) Encounter for screening for malignant neoplasm of rectum (Z12.12) Active confirmed Problem Epigastric pain (37592120) Abdominal pain, epigastric (R10.13) Active confirmed Problem Preprocedural examination (179275773560831) Preprocedural examination (Z01.818) Active confirmed Problem Atrophic gastritis (68353247) Chronic gastritis without bleeding, unspecified gastritis type (K29.50) Active confirmed Problem Diverticulosis of colon (783257012) Diverticulosis of colon (K57.30) Active confirmed Plan Of Treatment Pending Test Test Name Order Date Pathology 01/06/2024 Future Test Test Name Order Date UPPER GI ENDOSCOPY 02/08/2016 COLONOSCOPY 02/08/2016 COLONOSCOPY 06/25/2021 COLONOSCOPY 09/22/2023 Insurance Providers Payer Name Payer Address Payer Phone Subscriber Number Group Number Insured Name Patient Relationship to Insured Coverage Start Date Coverage End Date [facility] [address] [place] [address] [id number] Self - patient is the insured Medical (General) History Medical History History ICD Code Denies [place],DM,CVA,renal disease Asthma Allergies/seasonal EGD in 05/2016--Gastritis, er [...]
--- OUTSIDE RECORDS SUMMARY | 2025-03-01 11:25 | XMS_ITS | Patient Health Record ---
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 Phone Juan Francisco Rojas Primary Care Provider Cristina Arredondo Unavailable [phone] Allergies No Known Allergies Reason For Referral Diagnosis 1 Pain in unspecified foot (M79.673) Referring Provider First Name Juan Francisco Referring Provider Last Name Crystal Referring Provider Speciality Internal M edicine Referred Organization [facility] [place] Referred Provider Cristina Arredondo Referred Address [address] ,[place], [place],[address], Referred Provider Specialty Podiatry Referral Priority Routine Medications Medication SIG (Take, Route, Frequency, Duration) Notes Start Date End Date Status Itraconazole 100 MG 1 capsule after a me al Orally Once a day; Duration: 30 days 11/22/2024 Not-Taking Propranolol HCl Acti ve Fluticasone Propionate Active Avar Active Terbinafine HCl 250 MG 1 tablet Orally O nce a day; Duration: 30 days 09/30/2024 Not-Takin g predniSONE 5 MG 4 tablets once a day for 3 days, 3 tablets once a day for 3 days, 2 tablets once a day for 3 days, 1 tablet once a day for 3 days Orally; Duration: 12 days 12/08/2024 Active Immunizations Vaccine Route Administration Date Status Comme nts Influenza Unknown 01/12/2024 Administered Social History Tobacco Use: Social History Observation Description Date Details (start date - stop date) Never Smoker NA - NA Tobacco use other than smoking: Question Answer Notes Are you an other tobacco user? No Tobacco Control (Standard) Question Answer Notes Tobacco use: Nonsmoker Additional Findings: Tobacco non-user Current no nsmoker AUDIT-C (Standard) Question Answer Notes Did you have a drink containing alcohol in the p ast year? No Points 0 Interpretation Negative Vital Signs Blood pressure diastolic 70 mm Hg 02/20/2025 Height [id number] in 02/20/2025 Blood pressure systolic 127 mm Hg 02/20/2025 Weight 194 lbs 02/20/2025 BMI 27.05 kg/m2 02/20/2025 Encounters Encounter Location Date Provider Diagnosis [address] [address] 09/29/2024 Cristina Arredondo Pain in right toe(s) M79.674 ; Onychomycosis B35.1 and Pain in left toe(s) M79.[address] [address] 12/08/2024 Cristina Arredondo Pain in right toe(s) M79.674 ; Onychomycosis B35.1 and Pain in left toe(s) M79.[address] [address] 02/20/2025 Cristina Arredondo Pain in right toe(s) M79.674 ; Onychomycosis B35.1 and Pain in left toe(s) M79.[address] [address] 07/26/2024 Cristina Arredondo [address] [address] 09/30/2024 Cristina Arredondo [address] [address] 10/31/2024 Cristina Arredondo [address] [address] 11/21/2024 Cristina Arredondo Assessments Encounter Date Diagnosis (ICD Code) Assessment Notes Treatment Notes Treatment Clinical Notes Section Notes 09/29/2024 Pain in right toe(s) (ICD-10 - M79.674) 09/29/2024 Onychomycosis (ICD-10 - B35.1) 12/08/2024 Pain in right toe(s) (ICD-10 - M79.674) 12/08/2024 Onychomycosis (ICD-10 - B35.1) 02/20/2025 Pain in right toe(s) (ICD-10 - M79.674) 02/20/2025 Onychomycosis (ICD-10 - B35.1) 09/29/2024 Pain in left toe(s) (ICD-10 - M79.675) 12/08/2024 Pain in left toe(s) (ICD-10 - M79.675) 02/20/2025 Pain in left toe(s) (ICD-10 - M79.675) Plan Of Treatment Pending Test Test Name Order Date *Liver Function Test (LFT) 09/29/2024 *Liver Function Test (LFT) 12/08/2024 Insurance Providers Payer Name Payer Address Payer Phone Subscriber Number Group Number Insured Name Patient Relationship to Insured Coverage Start Date Coverage End Date [facility] [address] [place] [address] [id number] Grant Nogueira Self - patient is the insured Medical (General) History Medical History History ICD Code Arthritis asthma Back,Hip,and Knee pain Surgical History Surgery Date(Month/Year) Herniated Disc 1999 Knee Surgery 1998
== END 2025-02-28 15:08 | disposition home or self-care (01) ==
LOC: HO.HMCSH 14:24
PROVIDERS: PCP Physician Assistant Medical; Visit Provider Physician Assistant Medical
DX: M25.50 Pain in unspecified joint (principal); R25.1 Tremor, unspecified; R03.0 Elevated blood-pressure reading, without diagnosis of hypertension; Z23 Encounter for immunization

== ENCOUNTER 2025-03-07 14:13 | Outpatient (AMB) | payer BC, SELFPAY ==
--- NOTE | 2025-03-07 14:20 | MHC.OFFVIS ---
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: No Accompanied by: Self / Same As Patient Allergies ibuprofen Allergy (Verified 03/07/25 14:20) Unknown Medication List - Last Reconciled 03/07/25 by Dipika Robles MD albuterol sulfate 90 mcg/actuation 2 inhalations inhalation Q4H PRN ascorbic acid (vitamin C) 1 g PO DAILY beclomethasone dipropionate 40 mcg/actuation (Qvar RediHaler) 1 inh inhalation BID cyclobenzaprine 10 mg PO Q8H fluticasone propionate 50 mcg/actuation 1 spray intranasal DAILY magnesium 250 mg PO DAILY meloxicam 15 mg PO DAILY [Probiotic 1 mg PO DAILY] propranolol 10 mg PO BID [Vitamin D3 ] HPI Comments Details: 60y/o Right handed male comes for evaluation of tremors. He started noticing tremors in ashley hands about 7 years ago.It is episodic and with action only. He has not noticed a significant increase in intensity. The tremors does not affect any of daily activities and he is not embarrassed. He was started on propranolol 4 years - he is not sure if it helps. The tremors are worse when he is doing any activity that requires fine motor coordination.Changes the position of his hands helps with tremors. 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 No problems with writing , may ahve some issues with using the [facility] Medical History Elevated blood pressure reading Tremor of both hands Elevated C-reactive protein (CRP) Elevated erythrocyte sedimentation rate Trigger finger Joint pain COPD (chronic obstructive pulmonary disease) Class 1 obesity with body mass index (BMI) of 32.0 to 32.9 in adult Nicotine dependence Tremor Helicobacter pylori gastritis Onychomycosis Lumbar herniated disc Degenerative disc disease Allergies Spinal stenosis Seasonal allergies GERD (gastroesophageal reflux disease) Asthma Surgical History Hx of knee surgery History of back surgery Hx of colonoscopy (~01/06/24) History of esophagogastroduodenoscopy (EGD) Family History Father Diabetes Mother No problems noted. Social History Housing: House Are you a primary family day care provider to a significant other at home: No Do you presently have visiting nurse or other home services: No Alcohol intake: current Alcohol intake frequency: does not drink Patient Tobacco Use Status: Former Tobacco user Tobacco use type: Cigarette Cigarettes Per Day: 10 Years Smoked: started approx 15 yrs old, 1/2 ppd, quit this past thursday service: No Current occupational status: retired Cognitive needs: No Hearing needs: No Vision needs: Yes (rx glasses) Review of Systems ENT Reports Normal hearing present Neuro Reports Normal hearing present Physical Exam Vital Signs: Last Vital Signs Pulse 69 03/07/25 14:21 BP 122/78 03/07/25 14:21 Pulse Ox 96 03/07/25 14:21 Oxygen Delivery Method Room Air 03/07/25 14:21 BMI result Body Mass Index 27.9 Const General: cooperative, healthy appearing, comfortable and no acute distress Nutritional Appearance: average body habitus Orientation/consciousness: patient oriented x3 Eyes Pupils: Equal, round and reactive pupils present Neuro Other: mild action tremors whild writing and mild head tremors General: patient oriented x3, gait normal, tone normal, moves all extremities and no focal motor deficits Cranial nerves: Yes Facial sensation intact/muscles of mastication intact, Yes Equal, round and reactive pupils present, Yes Bilaterally intact EOM present, Yes Nystagmus not present, Yes Normal facial strength present, Yes Midline tongue present, Yes Symmetric palate elevation present, Yes Normal hearing present, Yes Ability to bilaterally rotate head present and Yes Ability to bilaterally elevate shoulders present Cognition (Neuro): normal cognition Gait exam (Neuro): Normal gait present Motor exam (neuro): 5/5 motor strength present throughout and Normal motor muscle tone present throughout Deep tendon reflexes (DTR's): Right triceps reflex intensity grade: 1+, Left triceps reflex intensity grade: 1+, Rt Biceps (C5, C6): 1+, Left biceps reflex intensity grade: 1+, Right brachioradialis reflex intensity grade: 1+, Left brachioradialis reflex intensity grade: 1+, Right patellar reflex intensity grade: 2+ and Left patellar reflex intensity grade: 2+ Coordination: [id number] test normal Assessment & Plan Assessment & Plan (1) Tremor of both hands: Comment: very mild - giana essential tremors Code(s): R25.1 - Tremor, unspecified Category: Medical Plan Continue propranolol 10mg bid No evidence of Parkinsons on today's exam. F/u with pcp. F/u with Neuro as needed Coding Level of Care Code New Pt Level 4 (40106) Diagnoses Tremor of both hands R25.1
[2025-03-07 14:21] VITALS: BP 122/78; PULSE 69; O2SAT 96; BMI 27.9
== END 2025-03-07 16:06 | disposition home or self-care (01) ==
LOC: HO.HSMS 14:13
PROVIDERS: PCP Physician Assistant Medical; Visit Provider Psychiatry & Neurology Neurology
DX: R25.1 Tremor, unspecified (principal)
CPT/HCPCS: 99204

== ENCOUNTER 2025-03-27 08:14 | Outpatient (AMB) | payer BC, SELFPAY ==
--- NOTE | 2025-03-27 08:27 | MHC.PC.OV ---
Vital Signs 03/27/25 08:30 Height 5 ft 10 in Weight 193 lb 0.4 oz BMI 27.7 BP 117/56 L Blood Pressure Location Rt brachial Pulse 67 Pulse Source Pulse Oximeter Temp 97.1 F Pulse Oximetry (%) 99 Intake Visit Reasons: 3 month follow up Intake Note: Still having muscle and joint pain in hands, shoulders and legs Allergies ibuprofen Allergy (Verified 03/27/25 09:06) Unknown Medication List - Last Reconciled 03/27/25 by Juan Francisco Rojas MD albuterol sulfate 90 mcg/actuation 2 inhalations inhalation Q4H PRN ascorbic acid (vitamin C) 1 g PO DAILY beclomethasone dipropionate 40 mcg/actuation (Qvar RediHaler) 1 inh inhalation BID cyclobenzaprine 10 mg PO Q8H fluticasone propionate 50 mcg/actuation 1 spray intranasal DAILY magnesium 250 mg PO DAILY meloxicam 15 mg PO DAILY [Probiotic 1 mg PO DAILY] propranolol 10 mg PO BID [Vitamin D3 ] Tobacco use date assessed: 01/09/25 Dental Screening Dental Screen Date: 02/28/25 HPI HPI Comments History of Present Illness Details History of Present Illness - The patient is a 60 year old male presenting with a follow-up for joint pain. - He has a history of joint pain and was seen in December for an evaluation of arthritis. - A course of prednisone initially improved his symptoms by 90%, but the pain returned within a week of discontinuing the medication. - He reports morning stiffness that lasts for about an hour and a half and improves with a hot shower. - His hands feel tender and tight, are swollen, and he cannot make a fist, though a previous trigger finger in the left hand has improved. - He reports pain in both shoulders, which affects his sleep. - He takes meloxicam for the pain and noted symptoms returned after he stopped taking it for a couple of days. 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 - The patient was treated for onychomycosis with terbinafine, which he discontinued in November due to the severity of his joint pain, but the fungus has improved. - He follows with a radiation therapist. - For a history of essential tremor, he was evaluated by neurology in February and prescribed propranolol twice daily, which he reports helps somewhat. - Parkinson's disease was ruled out. - His asthma is stable on albuterol and Qvar. - He has a history of smoking but has quit. - He is due for a colonoscopy in the upcoming new year. Social History - Tobacco Use: The patient has a history of smoking but has quit. - Functional Status: The patient is able to perform all activities around the house and can drive, but not at night. - Activity Level: He reports being fairly active, chasing and playing with his four grandchildren. Results - Blood work performed in January was reviewed. - Lyme titer was negative. - Rheumatoid arthritis and immunology testing were negative. - Inflammatory marker was slightly elevated. FORMERLY [facility], [facility] Medical History Elevated blood pressure reading Tremor of both hands Elevated C-reactive protein (CRP) Elevated erythrocyte sedimentation rate Trigger finger Joint pain COPD (chronic obstructive pulmonary disease) Class 1 obesity with body mass index (BMI) of 32.0 to 32.9 in adult Nicotine dependence Tremor Helicobacter pylori gastritis Onychomycosis Lumbar herniated disc Degenerative disc disease Allergies Spinal stenosis Seasonal allergies GERD (gastroesophageal reflux disease) Asthma Surgical History Hx of knee surgery History of back surgery Hx of colonoscopy (~01/06/24) History of esophagogastroduodenoscopy (EGD) Family History Father Diabetes Mother No problems noted. Social History Housing: House Are you a primary health care specialist to a significant other at home: No Do you presently have visiting nurse or other home services: No Alcohol intake: current Alcohol intake frequency: does not drink Patient Tobacco Use Status: Former Tobacco user Tobacco use type: Cigarette Cigarettes Per Day: 10 Years Smoked: started approx 15 yrs old, 1/2 ppd, quit this past thursday service: No Current occupational status: retired Cognitive needs: No Hearing needs: No Vision needs: Yes (rx glasses) Questionnaire PHQ-9 Over the last 2 weeks, how often have you been bothered by any of the following problems? 1. Little interest or pleasure in doing things: not at all 2. Feeling down, depressed, or hopeless: not at all 3. Trouble falling or staying asleep, or sleeping too much: not at all 4. Feeling tired or having little energy: not at all 5. Poor appetite or overeating: not at all 6. Feeling bad about yourself - or that you are a failure or have let yourself or your family down: not at all 7. Trouble concentrating on things, such as reading the newspaper or watching television: not at all 8. Moving or speaking so slowly that other people could have noticed. Or the opposite - being so fidgety or restless that you have been moving around a lot more than usual: not at all 9. Thoughts that you would be better off or of hurting yourself in some way: not at all Total score: 0 Depression Screening Interpretation: Negative Depression Screening Done: Yes 90032 - PHQ-9 Billing: Yes Source: Developed by Drs. Garrison Durand, Lupis Bailey, Charles Link and colleagues, with an educational alise from [employer]. Thrive Questionnaire Date Thrive assessed: 01/20/25 I am a: Patient What is your living situation today?: I have a steady place to live Within the past 12 months, did the food you bought not last and you didn't have the money to get more?: Never true Within the past 12 months, did you worry whether your food would run out before you got money to buy more?: Never true Do you have trouble paying for medicines?: No Do you have trouble getting transportation to medical appointments?: No Do you have trouble paying your heating and electricity bill?: No Do you have trouble taking care of your child, family member or friend?: No Do you have trouble with day-to-day activities such as bathing, preparing meals, shopping, managing finances, etc.?: No Are you currently unemployed and looking for a job?: No Are you interested in more education?: No Please select the resources that you would like help with: None THRIVE Score: 0 AUDIT C Alcohol Use Questionnaire (AUDIT-C) 1. How often do you have a drink containing alcohol?: Never 3. How often do you have six or more drinks on one occasion?: Never Total Score: 0 Score Reviewed/Action Taken: Yes LYSSA-7 AMB Questionnaire LYSSA-7 Date LYSSA - 7 assessed: 01/20/25 Feeling nervous, anxious, or on edge: 0 = Not at all Not being able to stop or control worryin = Not at all Worrying too much about different things: 0 = Not at all Trouble relaxin = Not at all Being so restless that it is hard to sit still: 0 = Not at all Becoming easily annoyed or irritable: 0 = Not at all Feeling afraid as if something awful might happen: 0 = Not at all Total LYSSA-7 score (0-4 normal; 5-9 mild; 10-14 moderate; 15-21 severe): 0 Source: Developed by Drs. Garrison Durand, Lupis Bailey, Charles Link and colleagues, with an educational alise from [employer]. LYSSA-7 Assessment Billing LYSSA-7 Assessment Tool: LYSSA-7 Assessment 45851 Review of Systems Narrative Review of Systems - Musculoskeletal: Reports joint pain, morning stiffness lasting about 90 minutes, tender and tight hands, and pain in both shoulders. - Reports feeling that it is harder to get up from the floor. - Denies bone pain. - Neurological: Reports tremors, which improve with propranolol. - Constitutional: Reports difficulty sleeping due to shoulder pain. - Eyes: Denies seeing halos around lights. - Ears: Reports his hearing is good. - Skin: Reports his trigger finger is better. Physical exam (Primary Care) Vital Signs: Last Vital Signs Temp 97.1 F 03/27/25 08:30 Pulse 67 03/27/25 08:30 BP 117/56 L 03/27/25 08:30 Pulse Ox 99 03/27/25 08:30 BMI result Body Mass Index 27.7 Tobacco/Smoking Status: Tobacco use Status Tobacco use date assessed 01/09/25 03/27/25 08:29 Patient Tobacco Use Status Former Tobacco user 03/27/25 08:29 Tobacco use type Cigarette 03/27/25 08:29 PHQ-9: PHQ-9 Score PHQ-9: Total score 0 03/27/25 08:34 Depression Screening Interpretation: Negative Thrive Assessment: Date of Thrive Assessment Date Thrive assessed 01/20/25 03/27/25 08:29 Narrative Physical Exam General: Appearance normal, both eyes and all related structures Nutritional Appearance: Well nourished Orientation/consciousness: Patient oriented x3 Limitations: No limitations Head: Normal to inspection Neck: Normal visual inspection Chest: Normal palpation of entire chest wall Respiratory: Normal respiratory effort Neurology: Patient oriented x3, mild essential tremor noted Office Procedures Flu Questionnaire Does the patient have a severe egg allergy?: No Does the patient have severe life threatening allergies?: No Does the patient have a fever or illness today?: No Has the patient ever had Guillain-Floyd Syndrome?: No Has the patient ever had any past reaction to a flu shot?: No Immunizations Fluarix [id number] (PF) 45 mcg (15 mcg x 3)/0.5 mL IM syringe Performing Provider: Juan Francisco Rojas MD [place] [facility] [place] [facility] Documented (not given) by: Summer Pulliam on 03/27/25 08:35 Reason Not Given: Patient Refused Coding Level of Care Code Est Pt Level 4 (78169) Add On Problem Visit Only Diagnoses Asthma J45.909 Additional Codes LYSSA-7 Assessment Billing - LYSSA-7 Assessment Tool: LYSSA-7 Assessment 48871 ([id number]) PHQ-9 - 05855 - PHQ-9 Billing: Yes ([id number]) Assessment & Plan Assessment & Plan (1) Asthma: Code(s): J45.909 - Unspecified asthma, uncomplicated Category: Medical Plan Plan - Osteoarthritis: The plan is to continue meloxicam for symptomatic relief and use medications like prednisone sparingly. - A referral for physical therapy will be placed to focus on strengthening the muscles around the joints and improving range of motion through daily stretching exercises for 20-30 minutes. - The patient should proceed with the upcoming rheumatology referral in May. - Essential Tremor: Continue propranolol as prescribed by neurology. - Asthma: Continue current inhalers (albuterol, Qvar). - Health Maintenance: Proceed with the low-dose CT scan for lung cancer screening when scheduled. - The patient should complete his upcoming colonoscopy. - He has declined the flu shot. - Follow-up: Plan to follow up in six months. Discussion Notes I discussed with the patient that his symptoms, in view of negative rheumatologic workup and a slightly elevated inflammatory marker, are most consistent with osteoarthritis, which is a process of general wear and tear of the bones. I explained that treatment involves physical therapy to strengthen muscles around the joints, as well as using pain medications like meloxicam and prednisone sparingly for relief. I emphasized the importance of maintaining a full range of motion in every joint through 20-30 minutes of daily stretching to prevent stiffness and fibrosis. I also discussed the recommendation for a low-dose CT scan for lung cancer screening due to his history of smoking. I addressed his concerns about radiation by explaining that it is a very low-dose, minimal radiation test. I highlighted the benefit of early diagnosis, which now allows for full care of lung cancers, and encouraged him to consider this before refusing the test. Patient Instructions - Your joint pain is likely due to osteoarthritis, which is from wear and tear on your joints. - Continue taking meloxicam for pain as needed. - We will set up physical therapy for you to help strengthen the muscles around your joints. - It is very important that you do stretching exercises for 20-30 minutes every day to keep your joints from getting stiff. - Try to work on exercises like touching your toes and squatting to build strength. - Keep your scheduled appointment with the rheumatology (arthritis) specialist. - Continue taking your propranolol for tremors and your asthma inhalers as prescribed. - Please get the recommended low-dose CT scan of your chest for lung cancer screening. - This test uses very little radiation and can help find cancer early when it is more treatable. - You have a colonoscopy coming up in the new year; please make sure to have that done. - We will see you back in the office in about six months. Orders: Orders Complete Blood Count no Diff Today J45.909 - Unspecified asthma, uncomplicated Lipid Panel Today J45.909 - Unspecified asthma, uncomplicated C Reactive Protein Today J45.909 - Unspecified asthma, uncomplicated Influenza [id number] Immunization Today Z23 - Encounter for immunization Basic Metabolic Panel Today J45.909 - Unspecified asthma, uncomplicated Liver Panel Today J45.909 - Unspecified asthma, uncomplicated UA and rflx microscopic Today J45.909 - Unspecified asthma, uncomplicated
[2025-03-27 08:30] VITALS: BP 117/56; PULSE 67; TEMP 36.2; O2SAT 99; BMI 27.7
== END 2025-03-27 08:54 | disposition home or self-care (01) ==
LOC: HO.HMCSH 08:14
PROVIDERS: PCP Physician Assistant Medical; Visit Provider Internal Medicine
DX: J45.909 Unspecified asthma, uncomplicated (principal); Z23 Encounter for immunization

== ENCOUNTER → 2025-03-27 08:14 | Outpatient (BNVA) | payer BC, SELFPAY | PROVIDERS: PCP Physician Assistant Medical; Visit Provider Internal Medicine | DX: Z28.82 Immunization not carried out because of caregiver refusal (principal); J45.909 Unspecified asthma, uncomplicated | CPT/HCPCS: 90471; 96127 ==